=== PATIENT | male | born 1955 | race Caucasian/White ===

== ENCOUNTER 2017-02-06 13:45 | Emergency (ER) | payer MEDICARE, OTHER ==
[~2017-02-06] VITALS: Ht 190.5 cm; Wt 172.4 kg
[~2017-02-06 13:45] MED LIST: ALBU90OI INH; AMIT50 PO; AMLO5 PO; ASPI325 PO; ATOR80 PO; CIPR500 PO; CYCL10 PO; DOXY100T53 PO; Desyrel50 MG PO; FINA5 PO; FISH1000 PO; FLUO10 PO; FLUT44OIA INH; FURO40 PO; GABA300 PO; HYDCHL25 PO; HYDR1TAB94 PO; LIDO5TP TOP; LISI20 PO; LOSA50 PO; MELO7.5 PO; METO25 PO; METO25ER PO; METO50 PO; METO50ER PO; METPRE4DP PO; MYRBETRIQ50 MG PO; Micro-K10 MEQ PO; NITR.4SL SL; NITR.6SL SL; Norco 10-325 T1 EACH PO; OXYACE5T PO; PAIN MEDICATION; PARO30 PO; PENVK250; POTA10T PO; POTA8 PO; Percocet 5-3251 EACH PO; Prozac40 MG PO; Roxicodone5 MG PO; SOLI5 PO; Senna8.6 M1 PO; Senna8.6 MG PO; TADA10TA PO; TAMS.4ER PO; TOPI25 PO; Valium5 MG PO; [UNRECOGNIZED DRUG - REMARK] PO
[2017-02-06] MEDS ORDERED: PERIDEX15 ML MM (14:35)
[2017-02-06] MEDS ORDERED: Amoxicillin500 MG PO (14:35)
[2017-05-21] MEDS ORDERED: SLEEPING MED (23:04)
[2017-05-21] MEDS ORDERED: HIGH BLOOD PRESSURE (23:04)
[2017-05-22] MEDS ORDERED: AMIT50 PO (15:33)
[2017-05-22] MEDS ORDERED: AMLO10 PO (15:34)
[2017-05-23] MEDS ORDERED: GABA300 PO (11:11)
[2017-05-23] MEDS ORDERED: IBUP400 PO (11:13)
[2017-05-23] MEDS ORDERED: LISI5 PO (11:14)
[2017-05-23] MEDS ORDERED: METO50 PO (11:15)
[2017-05-23] MEDS ORDERED: FURO40 PO (11:16)
[2017-10-25] MEDS ORDERED: Lipitor80 MG PO (15:00)
[2017-10-25] MEDS ORDERED: LOSA50 PO (15:00)
[2017-10-25] MEDS ORDERED: GABA300 PO (15:01)
[2017-10-25] MEDS ORDERED: AMLO10 PO (15:01)
[2017-10-25] MEDS ORDERED: Lasix20 MG PO (16:06)
== END 2017-02-06 14:42 | disposition home or self-care (01) ==
LOC: ER 13:45
DX: K08.89 Other specified disorders of teeth and supporting structures (principal); Z88.8 Allergy status to other drugs, medicaments and biological substances; Z91.030 Bee allergy status; I10 Essential (primary) hypertension; F32.9 Major depressive disorder, single episode, unspecified
CPT/HCPCS: 99282

== ENCOUNTER 2017-04-23 07:45 | Emergency (ER) | payer MEDICARE, OTHER ==
[~2017-04-23] VITALS: Ht 190.5 cm; Wt 181.4 kg
[~2017-04-23 07:45] MED LIST changes: +Amoxicillin500 MG PO; +PERIDEX15 ML MM
[2017-04-23] MEDS ORDERED: TIOT18 INH (08:28)
[2017-04-23] MEDS ORDERED: DOXA1 PO (08:28)
[2017-04-23] MEDS ORDERED: MYRBETRIQ50 MG PO (08:28)
[2017-04-23] MEDS ORDERED: ALBU90OI6 INH (08:29)
[2017-04-23 08:50] LABS: BASOPHILS ABSOLUTE AUTO 0.06 K/mm3 (0.00-0.23); BASOPHILS PERCENT AUTO 1 % (0-2); EOSINOPHILS ABSOLUTE AUTO 0.28 K/mm3 (0.00-0.68); EOSINOPHILS PERCENT AUTO 4 % (0-6); Hematocrit 46.9 % (37.0-53.0); Hemoglobin 15.2 g/dL (13.5-17.5); IMMATURE GRAN ABSOLUTE AUTO 0.04 K/mm3 (0.00-0.10); IMMATURE GRAN PERCENT AUTO 1 % (0-1); LYMPHOCYTES ABSOLUTE AUTO 1.04 K/mm3 (0.84-5.20); LYMPHOCYTES PERCENT AUTO 15 % (21-46); MONOCYTES ABSOLUTE AUTO 0.83 K/mm3 (0.16-1.47); MONOCYTES PERCENT AUTO 12 % (4-13); Mean Corpuscular HGB 28.8 pg (26.0-34.0); Mean Corpuscular HGB Conc 32.4 g/dL (31.5-36.5); Mean Corpuscular Volume 89 fL (80-100); Mean Platelet Volume 12.7 fL (9.1-12.4); NEUTROPHILS ABSOLUTE AUTO 4.89 K/mm3 (1.96-9.15); NEUTROPHILS PERCENT AUTO 69 % (41-73); Platelet Count 211 K/mm3 (150-400); RDW Coefficient Variation 14.1 % (11.7-14.2); RDW Standard Deviation 46.1 fL (35.1-46.3); Red Blood Cell Count 5.28 M/mm3 (4.30-5.90); White Blood Cell Count 7.14 K/mm3 (4.00-11.30)
[2017-04-23 09:01] LABS: Alanine Aminotransfer (ALT/SGP 31 U/L (12-78); Albumin, Blood 3.2 g/dL (3.4-5.0); Albumin/Globulin Ratio 0.9 (0.8-1.8); Alk Phos 64 U/L (50-136); Anion Gap 8 mmol/L (6-16); Aspartate Aminotrans (AST/SGOT 19 U/L (12-37); Bilirubin, Total 0.6 mg/dL (0.1-1.0); Blood Urea Nitrogen 17 mg/dL (8-24); Bun/Creatinine Ratio 21.5 (12.0-20.0); CO2, Blood 25 mmol/L (21-32); Calcium, Blood 8.4 mg/dL (8.5-10.1); Chloride, Blood 105 mmol/L (98-108); Creatinine, Blood 0.79 mg/dL (0.60-1.20); Globulin, Blood 3.7 g/dL (2.2-4.0); Glomerular Filtration Rate >60 (60-); Glucose, Blood 107 mg/dL (70-99); Potassium, Blood 3.8 mmol/L (3.5-5.5); Sodium, Blood 138 mmol/L (136-145); Total Protein, Blood 6.9 g/dL (6.4-8.2); Troponin I 0.025 ng/mL (0.000-0.040)
[2017-05-21] MEDS ORDERED: SLEEPING MED (23:04)
[2017-05-21] MEDS ORDERED: HIGH BLOOD PRESSURE (23:04)
[2017-05-22] MEDS ORDERED: AMIT50 PO (15:33)
[2017-05-22] MEDS ORDERED: AMLO10 PO (15:34)
[2017-05-23] MEDS ORDERED: GABA300 PO (11:11)
[2017-05-23] MEDS ORDERED: IBUP400 PO (11:13)
[2017-05-23] MEDS ORDERED: LISI5 PO (11:14)
[2017-05-23] MEDS ORDERED: METO50 PO (11:15)
[2017-05-23] MEDS ORDERED: FURO40 PO (11:16)
[2017-10-25] MEDS ORDERED: Lipitor80 MG PO (15:00)
[2017-10-25] MEDS ORDERED: LOSA50 PO (15:00)
[2017-10-25] MEDS ORDERED: AMLO10 PO (15:01)
[2017-10-25] MEDS ORDERED: GABA300 PO (15:01)
[2017-10-25] MEDS ORDERED: Lasix20 MG PO (16:06)
== END 2017-04-23 10:47 | disposition home or self-care (01) ==
LOC: ER 07:45
PROVIDERS: Emergency Medicine
DX: R51 Headache (principal); I10 Essential (primary) hypertension; I48.2 Chronic atrial fibrillation; F32.9 Major depressive disorder, single episode, unspecified; Z91.038 Other insect allergy status; Z91.048 Other nonmedicinal substance allergy status; Z79.899 Other long term (current) drug therapy; Z87.442 Personal history of urinary calculi
CPT/HCPCS: 36415; 71046; 80053; 83880; 84484; 85025; 93005; 93010; 99284

== ENCOUNTER 2017-05-08 09:04 | Emergency (ER) | payer MEDICARE, OTHER ==
[~2017-05-08] VITALS: Ht 190.5 cm; Wt 181.4 kg
[~2017-05-08 09:04] MED LIST changes: +ALBU90OI6 INH; +DOXA1 PO; +TIOT18 INH
[2017-05-08 10:37] LABS: BASOPHILS ABSOLUTE AUTO 0.05 K/mm3 (0.00-0.23); BASOPHILS PERCENT AUTO 1 % (0-2); EOSINOPHILS ABSOLUTE AUTO 0.02 K/mm3 (0.00-0.68); EOSINOPHILS PERCENT AUTO 0 % (0-6); Hematocrit 48.4 % (37.0-53.0); Hemoglobin 15.8 g/dL (13.5-17.5); IMMATURE GRAN ABSOLUTE AUTO 0.02 K/mm3 (0.00-0.10); IMMATURE GRAN PERCENT AUTO 0 % (0-1); LYMPHOCYTES ABSOLUTE AUTO 0.59 K/mm3 (0.84-5.20); LYMPHOCYTES PERCENT AUTO 12 % (21-46); MONOCYTES ABSOLUTE AUTO 0.86 K/mm3 (0.16-1.47); MONOCYTES PERCENT AUTO 18 % (4-13); Mean Corpuscular HGB 29.4 pg (26.0-34.0); Mean Corpuscular HGB Conc 32.6 g/dL (31.5-36.5); Mean Corpuscular Volume 90 fL (80-100); Mean Platelet Volume 12.3 fL (9.1-12.4); NEUTROPHILS PERCENT AUTO 68 % (41-73); Platelet Count 180 K/mm3 (150-400); RDW Coefficient Variation 14.1 % (11.7-14.2); RDW Standard Deviation 46.5 fL (35.1-46.3); Red Blood Cell Count 5.37 M/mm3 (4.30-5.90); White Blood Cell Count 4.74 K/mm3 (4.00-11.30)
[2017-05-08 10:56] LABS: Alanine Aminotransfer (ALT/SGP 35 U/L (12-78); Albumin, Blood 3.3 g/dL (3.4-5.0); Albumin/Globulin Ratio 0.8 (0.8-1.8); Alk Phos 62 U/L (50-136); Anion Gap 10 mmol/L (6-16); Aspartate Aminotrans (AST/SGOT 41 U/L (12-37); Bilirubin, Total 0.5 mg/dL (0.1-1.0); Blood Urea Nitrogen 12 mg/dL (8-24); Bun/Creatinine Ratio 13.1 (12.0-20.0); CO2, Blood 24 mmol/L (21-32); Calcium, Blood 8.3 mg/dL (8.5-10.1); Chloride, Blood 104 mmol/L (98-108); Creatinine, Blood 0.92 mg/dL (0.60-1.20); Globulin, Blood 3.9 g/dL (2.2-4.0); Glomerular Filtration Rate >60 (60-); Glucose, Blood 100 mg/dL (70-99); Potassium, Blood 3.6 mmol/L (3.5-5.5); Sodium, Blood 138 mmol/L (136-145); Total Protein, Blood 7.2 g/dL (6.4-8.2)
[2017-05-08 11:17] LABS: Influenza A Negative (NEGATIVE); Influenza B Negative (NEGATIVE)
[2017-05-08] MEDS ORDERED: Loperamide2 MG PO (11:53)
[2017-05-08] MEDS ORDERED: BENTYL10 MG PO (11:53)
[2017-05-08] MEDS ORDERED: Zofran Odt8 MG SL (11:53)
[2017-05-21] MEDS ORDERED: SLEEPING MED (23:04)
[2017-05-21] MEDS ORDERED: HIGH BLOOD PRESSURE (23:04)
[2017-05-22] MEDS ORDERED: AMIT50 PO (15:33)
[2017-05-22] MEDS ORDERED: AMLO10 PO (15:34)
== END 2017-05-08 12:34 | disposition home or self-care (01) ==
LOC: ER 09:04
PROVIDERS: Emergency Medicine
DX: K52.9 Noninfective gastroenteritis and colitis, unspecified (principal); I10 Essential (primary) hypertension; F32.9 Major depressive disorder, single episode, unspecified; Z91.038 Other insect allergy status; Z91.09 Other allergy status, other than to drugs and biological substances
CPT/HCPCS: 36415; 71046; 80053; 83690; 85025; 87804; 96361; 96374; 96375; 99284; J1885; J2405; J7030

== ENCOUNTER 2017-06-06 11:10 | Observation (INO) | payer MEDICARE ==
[~2017-06-06] VITALS: Ht 190.5 cm; Wt 176.0 kg
[~2017-06-06 11:10] MED LIST changes: +AMLO10 PO; +BENTYL10 MG PO; +HIGH BLOOD PRESSURE; +IBUP400 PO; +LISI5 PO; +Loperamide2 MG PO; +SLEEPING MED; +Zofran Odt8 MG SL
[2017-06-06 12:18] LABS: BASOPHILS ABSOLUTE AUTO 0.04 K/mm3 (0.00-0.23); BASOPHILS PERCENT AUTO 1 % (0-2); EOSINOPHILS PERCENT AUTO 2 % (0-6); Hemoglobin 17.8 g/dL (13.5-17.5); IMMATURE GRAN ABSOLUTE AUTO 0.01 K/mm3 (0.00-0.10); IMMATURE GRAN PERCENT AUTO 0 % (0-1); LYMPHOCYTES ABSOLUTE AUTO 0.78 K/mm3 (0.84-5.20); LYMPHOCYTES PERCENT AUTO 11 % (21-46); MONOCYTES ABSOLUTE AUTO 0.57 K/mm3 (0.16-1.47); MONOCYTES PERCENT AUTO 8 % (4-13); Mean Corpuscular HGB 29.2 pg (26.0-34.0); Mean Corpuscular Volume 89 fL (80-100); Mean Platelet Volume 12.1 fL (9.1-12.4); NEUTROPHILS ABSOLUTE AUTO 5.35 K/mm3 (1.96-9.15); NEUTROPHILS PERCENT AUTO 78 % (41-73); Platelet Count 233 K/mm3 (150-400); RDW Coefficient Variation 13.7 % (11.7-14.2); RDW Standard Deviation 44.1 fL (35.1-46.3); Red Blood Cell Count 6.09 M/mm3 (4.30-5.90); White Blood Cell Count 6.85 K/mm3 (4.00-11.30)
[2017-06-06 12:50] LABS: Alanine Aminotransfer (ALT/SGP 36 U/L (12-78); Albumin, Blood 3.4 g/dL (3.4-5.0); Albumin/Globulin Ratio 0.8 (0.8-1.8); Alk Phos 75 U/L (50-136); Anion Gap 9 mmol/L (6-16); Aspartate Aminotrans (AST/SGOT 27 U/L (12-37); Bilirubin, Total 0.6 mg/dL (0.1-1.0); Blood Urea Nitrogen 15 mg/dL (8-24); Bun/Creatinine Ratio 16.5 (12.0-20.0); CO2, Blood 23 mmol/L (21-32); Calcium, Blood 9.1 mg/dL (8.5-10.1); Chloride, Blood 104 mmol/L (98-108); Creatinine, Blood 0.91 mg/dL (0.60-1.20); Ethanol (Alcohol), Blood, Med <3 mg/dL; Globulin, Blood 4.5 g/dL (2.2-4.0); Glomerular Filtration Rate >60 (60-); Glucose, Blood 81 mg/dL (70-99); Salicylate <1.7 mg/dL (2.8-20.0); Sodium, Blood 136 mmol/L (136-145); Total Protein, Blood 7.9 g/dL (6.4-8.2)
[2017-06-06 12:59] LABS: Acetaminophen, Random <2.0 ug/mL (10.0-30.0)
== END 2017-06-06 14:34 | disposition home or self-care (01) ==
LOC: ER 11:10 → EOR 11:11
PROVIDERS: Emergency Medicine
DX: R45.851 Suicidal ideations (principal); F32.9 Major depressive disorder, single episode, unspecified; I10 Essential (primary) hypertension; M54.9 Dorsalgia, unspecified; G89.29 Other chronic pain; G47.30 Sleep apnea, unspecified; Z79.899 Other long term (current) drug therapy
CPT/HCPCS: 80053; 84443; 85025; 99285; G0378; G0480

== ENCOUNTER → 2017-09-19 | Outpatient (CLI) | payer MEDICARE, OTHER | END | disposition home or self-care (01) | LOC: LAB 13:05 → LAB SHORT 13:05 | DX: L08.0 Pyoderma (principal) | CPT/HCPCS: 87070; 87205 ==

== ENCOUNTER 2018-03-24 13:08 | Inpatient (IN) | payer MEDICARE, OTHER ==
[~2018-03-24] VITALS: Ht 188 cm; Wt 177.6 kg
[~2018-03-24 13:08] MED LIST changes: +Lasix20 MG PO; +Lipitor80 MG PO
[2018-03-24 13:36] LABS: BASOPHILS ABSOLUTE AUTO 0.05 K/mm3 (0.00-0.23); BASOPHILS PERCENT AUTO 1 % (0-2); EOSINOPHILS ABSOLUTE AUTO 0.32 K/mm3 (0.00-0.68); EOSINOPHILS PERCENT AUTO 4 % (0-6); Hematocrit 42.3 % (37.0-53.0); Hemoglobin 13.7 g/dL (13.5-17.5); IMMATURE GRAN ABSOLUTE AUTO 0.04 K/mm3 (0.00-0.10); IMMATURE GRAN PERCENT AUTO 1 % (0-1); LYMPHOCYTES ABSOLUTE AUTO 1.44 K/mm3 (0.84-5.20); LYMPHOCYTES PERCENT AUTO 17 % (21-46); MONOCYTES PERCENT AUTO 11 % (4-13); Mean Corpuscular HGB 30.6 pg (26.0-34.0); Mean Corpuscular HGB Conc 32.4 g/dL (31.5-36.5); Mean Corpuscular Volume 94 fL (80-100); Mean Platelet Volume 12.1 fL (9.1-12.4); NEUTROPHILS PERCENT AUTO 67 % (41-73); Platelet Count 214 K/mm3 (150-400); RDW Coefficient Variation 13.2 % (11.7-14.2); Red Blood Cell Count 4.48 M/mm3 (4.30-5.90); White Blood Cell Count 8.35 K/mm3 (4.00-11.30)
[2018-03-24 14:06] LABS: Alanine Aminotransfer (ALT/SGP 31 U/L (12-78); Albumin, Blood 3.2 g/dL (3.4-5.0); Alk Phos 62 U/L (50-136); Anion Gap 6 mmol/L (6-16); Aspartate Aminotrans (AST/SGOT 12 U/L (12-37); Bilirubin, Total 0.5 mg/dL (0.1-1.0); Blood Urea Nitrogen 29 mg/dL (8-24); Bun/Creatinine Ratio 27.9 (12.0-20.0); CO2, Blood 28 mmol/L (21-32); Calcium, Blood 8.7 mg/dL (8.5-10.1); Chloride, Blood 108 mmol/L (98-108); Creatinine, Blood 1.04 mg/dL (0.60-1.20); Globulin, Blood 3.2 g/dL (2.2-4.0); Glomerular Filtration Rate >60 (60-); Glucose, Blood 102 mg/dL (70-99); Potassium, Blood 4.1 mmol/L (3.5-5.5); Sodium, Blood 142 mmol/L (136-145); Total Protein, Blood 6.4 g/dL (6.4-8.2); Troponin I <0.015 ng/mL (0.000-0.040)
[2018-03-24 17:59] LABS: Creatine Kinase MB 2.9 ng/mL (0.0-3.6); Creatine Kinase MB Index 2.6 (0.0-4.0); Troponin I 0.018 ng/mL (0.000-0.040)
[2018-03-24 22:13] LABS: Creatine Kinase MB Index 3.6 (0.0-4.0); Troponin I 0.017 ng/mL (0.000-0.040)
--- NOTE | 2018-03-24 22:51 | NUR ---
PT ARRIVED ON THE FLOOR AT 1945. HE WAS NPO ON ADMISSION PER DR SWEENEY, BUT IN THE ORDER IT STATED THAT THE PT COULD BE MADE ADA/CARDIAC DIET IF HIS SECOND TROPONIN WAS NEGATIVE. THE PT'S SECOND TROPONIN WAS SLIGHTLY ELEVATED AT 0.018, HE CONTINUED TO BE NPO. HOWEVER, THE PT REPORTED THAT HE HADN'T EATEN SINCE THE AM. THE HOSPITALIST, EDISON BROWN, WAS CONSULTED, AND HE AGREED TO LET THE PT EAT AND THEN MAKE HIM NPO FOR THE REST OF THE NIGHT IN PREP FOR ANY POSSIBLE CARDIAC TESTING TOMORROW.
[2018-03-25 05:35] LABS: BASOPHILS ABSOLUTE AUTO 0.05 K/mm3 (0.00-0.23); BASOPHILS PERCENT AUTO 1 % (0-2); EOSINOPHILS ABSOLUTE AUTO 0.32 K/mm3 (0.00-0.68); EOSINOPHILS PERCENT AUTO 4 % (0-6); Hematocrit 40.7 % (37.0-53.0); IMMATURE GRAN ABSOLUTE AUTO 0.02 K/mm3 (0.00-0.10); IMMATURE GRAN PERCENT AUTO 0 % (0-1); LYMPHOCYTES ABSOLUTE AUTO 1.29 K/mm3 (0.84-5.20); LYMPHOCYTES PERCENT AUTO 17 % (21-46); MONOCYTES ABSOLUTE AUTO 0.78 K/mm3 (0.16-1.47); MONOCYTES PERCENT AUTO 10 % (4-13); Mean Corpuscular HGB 30.3 pg (26.0-34.0); Mean Corpuscular HGB Conc 31.9 g/dL (31.5-36.5); Mean Corpuscular Volume 95 fL (80-100); Mean Platelet Volume 12.4 fL (9.1-12.4); NEUTROPHILS ABSOLUTE AUTO 5.26 K/mm3 (1.96-9.15); NEUTROPHILS PERCENT AUTO 68 % (41-73); Platelet Count 185 K/mm3 (150-400); RDW Coefficient Variation 13.2 % (11.7-14.2); Red Blood Cell Count 4.29 M/mm3 (4.30-5.90); White Blood Cell Count 7.72 K/mm3 (4.00-11.30)
[2018-03-25 06:08] LABS: Anion Gap 9 mmol/L (6-16); Blood Urea Nitrogen 23 mg/dL (8-24); Bun/Creatinine Ratio 25.8 (12.0-20.0); CO2, Blood 27 mmol/L (21-32); Calcium, Blood 8.6 mg/dL (8.5-10.1); Chloride, Blood 107 mmol/L (98-108); Cholesterol 95 mg/dL (50-200); Creatinine, Blood 0.89 mg/dL (0.60-1.20); Glomerular Filtration Rate >60 (60-); Glucose, Blood 87 mg/dL (70-99); Potassium, Blood 3.7 mmol/L (3.5-5.5); Sodium, Blood 143 mmol/L (136-145); Triglycerides 129 mg/dL (30-160); Very Low Density Lipoprot Chol 25 mg/dL (6-32)
[2018-03-25 06:20] LABS: CHOL/HDL RATIO 2.6; Free Thyroxine 1.13 ng/dL (0.70-1.60); HDL Cholesterol 37 mg/dL (>39); LDL/HDL RATIO 0.9; Low Density Lipoprotein Chol 32 mg/dL (0-110)
--- NOTE | 2018-03-25 06:34 | NUR ---
SHIFT SUMMARY PT WAS A NEW ADMIT DURING THE NIGHT, ADMITTED FOR CHEST PAIN/PRESSURE. HE IS A&O X 3, THOUGH OCCASIONALLY SLOW TO UNDERSTAND AND IS A POOR HISTORIAN. THE PT DID REPORT SOME MILD CHEST PAIN DURING THE NIGHT, BUT DENIED THE NEED FOR PAIN MEDS. THE PT'S SECOND TROPONIN WAS SLIGHTLY ELEVATED, SO PT WAS CONTINUED NPO (SEE PREVIOUS NOTE). HIS BP WAS ALSO SLIGHTLY ELEVATED DURING THE NIGHT, IN THE 160S SYSTOLICALLY. PER THE TELE MONITOR, HE WAS IN AFIB AND RUNNING BRADYCARDIC BETWEEN THE 40-50S. ALL OTHER VITALS STABLE. PT WAS ON CONTINUOUS FLUIDS DURING THE NIGHT, NS AT 125/HR. NO OTHER ACUTE CHANGES IN PT CONDITION NOTED. WILL CONTINUE TO MONITOR AND TREAT.
--- NOTE | 2018-03-25 13:33 | NUR ---
ECHOCARDIOGRAM COMPLETE
--- NOTE | 2018-03-25 17:25 | NUR ---
NO COMPLAINTS OF CHEST PAIN TODAY. RATE AND RHYTHM WERE AFIB AT 51 BPM PER PCU POSTAL SORTING OFFICER. PT USES URINAL AT BEDSIDE. HE RECIEVED A SHOWER TODAY. A STOOL SAMPLE IS NEEDED, HAT IN PLACE. PT ON A ADA DIET. NO ACUTE CHANGES THIS SHIFT. WILL CONTINUE TO MONITOR.
[2018-03-25 23:12] LABS: Adenovirus F 40/41 Not Detected (NOT DETECT); Astrovirus Not Detected (NOT DETECT); Campylobacter Sp Not Detected (NOT DETECT); Cryptosporidium Not Detected (NOT DETECT); Cyclospora Cayetanensis Not Detected (NOT DETECT); E. Coli O157 Not Detected (NOT DETECT); Entamoeba Histolytica Not Detected (NOT DETECT); Enteroaggregative E. coli-EAEC Not Detected (NOT DETECT); Enteropathogenic E. coli-EPEC Not Detected (NOT DETECT); Enterotoxigenic E. coli-ETEC Not Detected (NOT DETECT); Giardia Lamblia Not Detected (NOT DETECT); Norovirus GI/GII Not Detected (NOT DETECT); Plesiomonas Shigelloides Not Detected (NOT DETECT); Rotavirus A Not Detected (NOT DETECT); Salmonella Sp Not Detected (NOT DETECT); Sapovirus Not Detected (NOT DETECT); Shiga Toxin-prod E. coli-STEC Not Detected (NOT DETECT); Shigella/Enteroin E. coli-EIEC Not Detected (NOT DETECT); Vibrio Cholerae Not Detected (NOT DETECT); Vibrio Sp Not Detected (NOT DETECT); Yersinia Enterocolitica Not Detected (NOT DETECT)
--- NOTE | 2018-03-26 06:28 | NUR ---
SHIFT SUMMARY PT IS A 62 Y/O MALE, ADMITTED FOR CHEST PAIN. THE PT REPORTED MINIMAL CHEST PAIN DURING THE NIGHT, BETWEEN A 2-04/16 WITH NO CP REPORTED IN THE AM. HE ALSO DENIED ANY NAUSEA OR SOB. VITAL SIGNS REMAINED STABLE. NO OTHER ACUTE CHANGES IN PT CONDITION NOTED. WILL CONTINUE TO MONITOR AND TREAT PER EMAR.
--- NOTE | 2018-03-26 12:52 | NUR ---
NORVASC AND METOPROLOL HELD THIS MORNING FOR HR OF AFIB AT 56 BPM PER COMMUTATOR TESTER. DROPPED LOW 39 BPM OVERNIGHT.
--- NOTE | 2018-03-26 14:23 | NUR ---
PT COMPLAINED OF CHEST PAIN. VITAL SIGNS INCLUDE HR OF 63 BPM AND BP OF 152/97. AFTER FIRST DOSE OF NITRO, VITAL SIGNS INCLUDED HR OF 57 AND BP OF 134/100. ALL THREE DOSES OF NITRO GIVEN. INTITIALLY PT STATED CHEST PRESSURE LESSENED, AND THEN COMPLAINED OF WORSENING CHEST PRESSURE. NO NAUSEA, NOT RADIATING, NO SOB. DR. NAM VISITED THE PT DURING HIS EPISODE OF CHEST PRESSURE. WILL CONTINUE TO MONITOR.
--- NOTE | 2018-03-26 17:09 | NUR ---
PT IS ALERT AND ORIENTED AND COOPERATIVE WITH CARE. CARDIAC MEDICATIONS HELD THIS MORNING FOR LOW HR OF 55. PT COMPLAINED OF CHEST PRESSURE THIS AFTERNOON. NITROGLYCERIN ADMINISTERED AND VITALS RECORDED. DR. NAM NOTIFIED OF PT'S COMPLAINTS. PT'S CHEST PRESSURE SUBSIDED AFTER THREE DOSES OF NITROGLYCERIN. HE HAS A 20 GAUGE IN HIS RIGHT FOREARM. PT USES URINAL IN BED. RATE AND RHYTHM OF ATRIAL FLUTTER AT 56 BPM PER AUDITING CODER. STRESS TEST SCHEDULED TOMORROW 03/27/18. PT TO BE NPO AT 04:00 ON 03/27/18.
--- NOTE | 2018-03-27 06:22 | NUR ---
SHIFT SUMMARY PT IS A 62 Y/O MALE, ADMITTED FOR CHEST PAIN. HE DENIED ANY CHEST PAIN, NAUSEA OR SOB, AND SLEPT WELL THROUGH THE NIGHT. PT'S BP WAS ELEVATED DURING AM VITALS AT 161/108, ALL OTHER VITALS NORMAL. NO OTHER ACUTE CHANGES IN PT CONDITION NOTED. WILL CONTINUE TO MONITOR AND TREAT.
--- NOTE | 2018-03-27 18:35 | NUR ---
SHIFT SUMMARY GENE HAD FIRST PORTION OF STRESS TEST TODAY. SECOND PORTION IS TOMORROW AT NOON, NPO STARTING 8AM, NO CAFFEINE AFTER MIDNIGHT. CBGS ACHS CHANGED TO Q AM SINCE THEY HAVE BEEN WNL. STILL COMPLAINING OF DIZZINESS, ASKING HIM TO CALL BEFORE GETTING OOB. BPS VERY LABILE. REQUIRED IV HYDRALAZINE ONCE. TELE SHOWED AFIB IN THE 60S THIS SHIFT. COMPLAINED OF BACK PAIN AND RECEIVED OXY TWICE WITH GOOD EFFECT. TOOK PILLS PRESCRIBED. WCTM
--- NOTE | 2018-03-28 04:15 | NUR ---
03/28/18 0415 AWAKENED FOR AM LABS AND BATTERY CHANGE ON HEART MONITOR. DENIES ANY S/S OR COMPLAINTS. VITALS AND HEART MONITOR STABLE. SLEEPING WELL THIS SHIFT.
[2018-03-28 05:18] LABS: Anion Gap 10 mmol/L (6-16); Blood Urea Nitrogen 17 mg/dL (8-24); Bun/Creatinine Ratio 18.3 (12.0-20.0); CO2, Blood 24 mmol/L (21-32); Chloride, Blood 106 mmol/L (98-108); Creatinine, Blood 0.93 mg/dL (0.60-1.20); Glomerular Filtration Rate >60 (60-); Glucose, Blood 90 mg/dL (70-99); Potassium, Blood 4.1 mmol/L (3.5-5.5); Sodium, Blood 140 mmol/L (136-145)
--- NOTE | 2018-03-28 19:15 | NUR ---
PT. SITTING ON EDGE OF BED. NO NOEABLE CHANGES THIS SHIFT. PT. COMPLETED STRESS TEST TODAY.
--- NOTE | 2018-03-29 07:16 | NUR ---
a+o, call light in reach tele recording, rm air, saline locked, able to access the bathroom, asked for apple juice and after a reminder of the carbohydrates involved he was given it, walking rouonds completed with day staff
[2018-03-29] MEDS ORDERED: FURO40 PO (09:44)
[2018-03-29] MEDS ORDERED: CLARITIN10 MG PO (09:45)
[2018-03-29] MEDS ORDERED: Coreg12.5 MG PO (09:45)
[2018-03-29] MEDS ORDERED: MOTION RELIEF25 MG PO (09:47)
[2018-03-29] MEDS ORDERED: Nitrostat0.4 MG SL (09:48)
--- NOTE | 2018-03-29 13:53 | NUR ---
PT DISCHARGED HOME, PLANS ON DRIVING HIMSELF. LET PT. KNOW I WOULD NOT BE GIVING HIM ANY PAIN MEDS THEN. PT. OKAY WITH IT.
== END 2018-03-29 13:53 | disposition home or self-care (01) | DRG 313 ==
LOC: ER 13:08 → MEDS 13:09
PROVIDERS: Internal Medicine; Physician Assistant; ADMIT Family Medicine
DX: R07.9 Chest pain, unspecified (principal); Z68.43 Body mass index [BMI] 50.0-59.9, adult; R42 Dizziness and giddiness; R19.7 Diarrhea, unspecified; E66.01 Morbid (severe) obesity due to excess calories; R00.1 Bradycardia, unspecified; N40.0 Benign prostatic hyperplasia without lower urinary tract symptoms; F32.9 Major depressive disorder, single episode, unspecified; R51 Headache; I10 Essential (primary) hypertension; E11.9 Type 2 diabetes mellitus without complications; E78.5 Hyperlipidemia, unspecified; I48.2 Chronic atrial fibrillation; G47.33 Obstructive sleep apnea (adult) (pediatric); Z79.01 Long term (current) use of anticoagulants; Z79.891 Long term (current) use of opiate analgesic; Z79.899 Other long term (current) drug therapy
CPT/HCPCS: 36415; 36416; 71046; 78452; 80048; 80053; 80061; 82465; 82550; 82553; 82947; 83880; 84439; 84443; 84478; 84484; 85025; 85379; 87507; 93005; 93010; 93017; 93306; 94762; 96361; 96374; 99285-25; A9500; G0378; J0360; J0706; J2785; J7030

== ENCOUNTER 2018-06-08 15:35 | Emergency (ER) | payer MEDICARE, OTHER ==
[~2018-06-08] VITALS: Ht 190.5 cm; Wt 176.9 kg
[~2018-06-08 15:35] MED LIST changes: +CLARITIN10 MG PO; +Coreg12.5 MG PO; +MOTION RELIEF25 MG PO; +Nitrostat0.4 MG SL
[2018-06-08] MEDS ORDERED: METPRE4DP PO (18:29)
== END 2018-06-08 18:59 | disposition home or self-care (01) ==
LOC: ER 15:35
DX: M54.16 Radiculopathy, lumbar region (principal); G89.29 Other chronic pain; I48.91 Unspecified atrial fibrillation; E11.9 Type 2 diabetes mellitus without complications; E78.5 Hyperlipidemia, unspecified; I10 Essential (primary) hypertension; Z87.891 Personal history of nicotine dependence
CPT/HCPCS: 99283; J1100

== ENCOUNTER 2018-06-14 06:03 | Observation (INO) | payer MEDICARE, OTHER ==
[~2018-06-14] VITALS: Ht 190.5 cm; Wt 173.7 kg
[~2018-06-14 06:03] MED LIST changes: +GABA600 PO; +LOSARTAN POTAS100 MG PO
[2018-06-14 06:27] LABS: BASOPHILS ABSOLUTE AUTO 0.03 K/mm3 (0.00-0.23); BASOPHILS PERCENT AUTO 0 % (0-2); EOSINOPHILS ABSOLUTE AUTO 0.06 K/mm3 (0.00-0.68); EOSINOPHILS PERCENT AUTO 1 % (0-6); Hematocrit 50.4 % (37.0-53.0); Hemoglobin 16.6 g/dL (13.5-17.5); IMMATURE GRAN ABSOLUTE AUTO 0.03 K/mm3 (0.00-0.10); IMMATURE GRAN PERCENT AUTO 0 % (0-1); LYMPHOCYTES ABSOLUTE AUTO 0.93 K/mm3 (0.84-5.20); LYMPHOCYTES PERCENT AUTO 9 % (21-46); MONOCYTES ABSOLUTE AUTO 1.09 K/mm3 (0.16-1.47); MONOCYTES PERCENT AUTO 11 % (4-13); Mean Corpuscular HGB 30.2 pg (26.0-34.0); Mean Corpuscular HGB Conc 32.9 g/dL (31.5-36.5); Mean Corpuscular Volume 92 fL (80-100); Mean Platelet Volume 12.1 fL (9.1-12.4); NEUTROPHILS ABSOLUTE AUTO 8.07 K/mm3 (1.96-9.15); NEUTROPHILS PERCENT AUTO 79 % (41-73); Platelet Count 208 K/mm3 (150-400); RDW Coefficient Variation 13.2 % (11.7-14.2); RDW Standard Deviation 44.9 fL (35.1-46.3); Red Blood Cell Count 5.49 M/mm3 (4.30-5.90); White Blood Cell Count 10.21 K/mm3 (4.00-11.30)
[2018-06-14 06:50] LABS: Albumin, Blood 3.5 g/dL (3.4-5.0); Albumin/Globulin Ratio 0.9 (0.8-1.8); Bilirubin, Total 1.5 mg/dL (0.1-1.0); Bun/Creatinine Ratio 13.1 (12.0-20.0); Calcium, Blood 8.6 mg/dL (8.5-10.1); Creatinine, Blood 1.45 mg/dL (0.60-1.20); Globulin, Blood 3.8 g/dL (2.2-4.0); Potassium, Blood 3.3 mmol/L (3.5-5.5); Total Protein, Blood 7.3 g/dL (6.4-8.2); Troponin I 0.019 ng/mL (0.000-0.040)
[2018-06-14 08:24] LABS: U Amphetamine Screen Not Detected; U Barbituate Screen Not Detected; U Benzodiazapine Screen Not Detected; U Buprenorphine Screen Not Detected; U Cannabinoids Screen Not Detected; U Cocaine Screen Not Detected; U Methadone Screen Not Detected; U Methamphetamine Screen Not Detected; U Opiates Screen Not Detected; U Oxycodone Screen DETECTED; U Phencyclidine Screen Not Detected; U Propoxyphene Screen Not Detected
[2018-06-14] MEDS ORDERED: Oxybutynin Chlo10 MG PO (12:53)
== END 2018-06-15 16:44 | disposition home or self-care (01) ==
LOC: ER 06:03 → EOR 06:04
PROVIDERS: ADMIT Emergency Medicine
DX: F32.9 Major depressive disorder, single episode, unspecified (principal); F43.21 Adjustment disorder with depressed mood; R10.9 Unspecified abdominal pain; E66.9 Obesity, unspecified; E11.9 Type 2 diabetes mellitus without complications; E78.5 Hyperlipidemia, unspecified; G47.30 Sleep apnea, unspecified; I10 Essential (primary) hypertension; Z79.899 Other long term (current) drug therapy; Z87.891 Personal history of nicotine dependence
CPT/HCPCS: 36415; 74177; 80053; 83690; 84484; 85025; 93005; 93010; 96361; 96374-59; 96375; 99285-25; G0378; G0480; J2405; J3010; J7030; Q3014; Q9967

== ENCOUNTER 2018-07-17 18:11 | Emergency (ER) | payer MEDICARE, OTHER ==
[~2018-07-17] VITALS: Ht 190.5 cm; Wt 149.7 kg
[~2018-07-17 18:11] MED LIST changes: +METCAR500 PO; +Oxybutynin Chlo10 MG PO
[2018-07-17 18:38] LABS: BASOPHILS ABSOLUTE AUTO 0.05 K/mm3 (0.00-0.23); BASOPHILS PERCENT AUTO 1 % (0-2); EOSINOPHILS ABSOLUTE AUTO 0.11 K/mm3 (0.00-0.68); EOSINOPHILS PERCENT AUTO 2 % (0-6); Hematocrit 46.7 % (37.0-53.0); Hemoglobin 15.4 g/dL (13.5-17.5); IMMATURE GRAN ABSOLUTE AUTO 0.03 K/mm3 (0.00-0.10); IMMATURE GRAN PERCENT AUTO 0 % (0-1); LYMPHOCYTES ABSOLUTE AUTO 1.53 K/mm3 (0.84-5.20); LYMPHOCYTES PERCENT AUTO 20 % (21-46); MONOCYTES ABSOLUTE AUTO 0.84 K/mm3 (0.16-1.47); MONOCYTES PERCENT AUTO 11 % (4-13); Mean Corpuscular HGB 30.1 pg (26.0-34.0); Mean Corpuscular Volume 91 fL (80-100); Mean Platelet Volume 12.1 fL (9.1-12.4); NEUTROPHILS ABSOLUTE AUTO 4.99 K/mm3 (1.96-9.15); NEUTROPHILS PERCENT AUTO 66 % (41-73); Platelet Count 221 K/mm3 (150-400); RDW Coefficient Variation 13.2 % (11.7-14.2); Red Blood Cell Count 5.11 M/mm3 (4.30-5.90); White Blood Cell Count 7.55 K/mm3 (4.00-11.30)
[2018-07-17] MEDS ORDERED: Percocet 5-3251 EACH PO (18:54)
[2018-07-17] MEDS ORDERED: NARCAN4 MG (18:54)
[2018-07-17] MEDS ORDERED: MYRBETRIQ50 MG PO (18:54)
[2018-07-17] MEDS ORDERED: Oxybutynin Chlo15 MG PO (18:55)
[2018-07-17] MEDS ORDERED: ATOR80 PO (18:55)
[2018-07-17 19:37] LABS: Alanine Aminotransfer (ALT/SGP 28 U/L (12-78); Albumin, Blood 3.5 g/dL (3.4-5.0); Alk Phos 62 U/L (50-136); Anion Gap 9 mmol/L (6-16); Aspartate Aminotrans (AST/SGOT 14 U/L (12-37); Bilirubin, Total 0.4 mg/dL (0.1-1.0); Blood Urea Nitrogen 26 mg/dL (8-24); Bun/Creatinine Ratio 19.7 (12.0-20.0); CO2, Blood 23 mmol/L (21-32); Calcium, Blood 8.9 mg/dL (8.5-10.1); Chloride, Blood 105 mmol/L (98-108); Creatinine, Blood 1.32 mg/dL (0.60-1.20); Globulin, Blood 3.6 g/dL (2.2-4.0); Glomerular Filtration Rate 58 (60-); Glucose, Blood 100 mg/dL (70-99); Potassium, Blood 3.7 mmol/L (3.5-5.5); Sodium, Blood 137 mmol/L (136-145); Total Protein, Blood 7.1 g/dL (6.4-8.2); Troponin I <0.015 ng/mL (0.000-0.040)
[2018-10-22] MEDS ORDERED: FURO40 PO (10:04)
[2018-10-22] MEDS ORDERED: POTA10T PO (10:04)
[2018-10-22] MEDS ORDERED: AMLO5 PO (10:04)
[2018-10-22] MEDS ORDERED: Toviaz4 MG PO (10:05)
[2018-10-22] MEDS ORDERED: FLUO10 PO (13:12)
== END 2018-07-17 23:00 | disposition home or self-care (01) ==
LOC: ER 18:11
PROVIDERS: Emergency Medicine
DX: R07.89 Other chest pain (principal); Z91.030 Bee allergy status; Z88.8 Allergy status to other drugs, medicaments and biological substances; Z79.899 Other long term (current) drug therapy; I10 Essential (primary) hypertension; F32.9 Major depressive disorder, single episode, unspecified; I48.91 Unspecified atrial fibrillation
CPT/HCPCS: 36415; 71046; 71260; 80053; 83880; 84484; 85025; 85379; 93005; 93010; 96374-59; 99285-25; J1885; Q9967

== ENCOUNTER 2018-08-02 11:23 | Emergency (ER) | payer MEDICARE, OTHER ==
[~2018-08-02] VITALS: Ht 190.5 cm; Wt 167.4 kg
[~2018-08-02 11:23] MED LIST changes: +NARCAN4 MG; +Oxybutynin Chlo15 MG PO
[2018-08-02] MEDS ORDERED: ALBU90OI INH (13:30)
[2018-08-02] MEDS ORDERED: BENZ100A PO (13:30)
[2018-10-22] MEDS ORDERED: FURO40 PO (10:04)
[2018-10-22] MEDS ORDERED: POTA10T PO (10:04)
[2018-10-22] MEDS ORDERED: AMLO5 PO (10:04)
[2018-10-22] MEDS ORDERED: Toviaz4 MG PO (10:05)
[2018-10-22] MEDS ORDERED: FLUO10 PO (13:12)
== END 2018-08-02 13:41 | disposition home or self-care (01) ==
LOC: ER 11:23
DX: J20.9 Acute bronchitis, unspecified (principal); I48.91 Unspecified atrial fibrillation; E11.9 Type 2 diabetes mellitus without complications; E78.5 Hyperlipidemia, unspecified; I10 Essential (primary) hypertension; Z87.891 Personal history of nicotine dependence; Z79.899 Other long term (current) drug therapy
CPT/HCPCS: 71046; 93005; 93010; 94640; 99283-25

== ENCOUNTER 2018-08-04 10:44 | Emergency (ER) | payer MEDICARE, OTHER ==
[~2018-08-04] VITALS: Ht 190.5 cm; Wt 172.4 kg
[~2018-08-04 10:44] MED LIST changes: +BENZ100A PO
[2018-10-22] MEDS ORDERED: FURO40 PO (10:04)
[2018-10-22] MEDS ORDERED: AMLO5 PO (10:04)
[2018-10-22] MEDS ORDERED: POTA10T PO (10:04)
[2018-10-22] MEDS ORDERED: Toviaz4 MG PO (10:05)
[2018-10-22] MEDS ORDERED: FLUO10 PO (13:12)
== END 2018-08-04 12:17 | disposition home or self-care (01) ==
LOC: ER 10:44
DX: M54.31 Sciatica, right side (principal); G89.29 Other chronic pain; J40 Bronchitis, not specified as acute or chronic; Z91.030 Bee allergy status; Z79.899 Other long term (current) drug therapy; Z88.8 Allergy status to other drugs, medicaments and biological substances; I48.91 Unspecified atrial fibrillation; E11.9 Type 2 diabetes mellitus without complications; E78.5 Hyperlipidemia, unspecified; I10 Essential (primary) hypertension; F32.9 Major depressive disorder, single episode, unspecified; Z87.891 Personal history of nicotine dependence
CPT/HCPCS: 99283

== ENCOUNTER → 2018-08-17 | Outpatient (CLI) | payer MEDICARE, OTHER ==
[~2018-08-17] MED LIST changes: +Lasix40 MG PO; +Toviaz4 MG PO
== END | disposition home or self-care (01) ==
LOC: LAB UCHC 11:51 → LAB SHORT 11:51
DX: R05 Cough (principal)
CPT/HCPCS: 87081; 87798

== ENCOUNTER 2018-08-30 00:09 | Emergency (ER) | payer MEDICARE, OTHER ==
[~2018-08-30] VITALS: Ht 190.5 cm; Wt 172.4 kg
[~2018-08-30 00:09] MED LIST changes: -Lasix40 MG PO; -Toviaz4 MG PO
[2018-08-30 01:20] LABS: BASOPHILS ABSOLUTE AUTO 0.05 K/mm3 (0.00-0.23); BASOPHILS PERCENT AUTO 1 % (0-2); EOSINOPHILS ABSOLUTE AUTO 0.18 K/mm3 (0.00-0.68); EOSINOPHILS PERCENT AUTO 2 % (0-6); Hematocrit 45.4 % (37.0-53.0); Hemoglobin 14.6 g/dL (13.5-17.5); IMMATURE GRAN ABSOLUTE AUTO 0.03 K/mm3 (0.00-0.10); IMMATURE GRAN PERCENT AUTO 0 % (0-1); LYMPHOCYTES ABSOLUTE AUTO 1.25 K/mm3 (0.84-5.20); LYMPHOCYTES PERCENT AUTO 17 % (21-46); MONOCYTES ABSOLUTE AUTO 0.82 K/mm3 (0.16-1.47); MONOCYTES PERCENT AUTO 11 % (4-13); Mean Corpuscular HGB 29.6 pg (26.0-34.0); Mean Corpuscular HGB Conc 32.2 g/dL (31.5-36.5); Mean Corpuscular Volume 92 fL (80-100); Mean Platelet Volume 11.6 fL (9.1-12.4); NEUTROPHILS ABSOLUTE AUTO 5.19 K/mm3 (1.96-9.15); NEUTROPHILS PERCENT AUTO 69 % (41-73); Platelet Count 203 K/mm3 (150-400); RDW Coefficient Variation 14.5 % (11.7-14.2); RDW Standard Deviation 48.7 fL (35.1-46.3); Red Blood Cell Count 4.94 M/mm3 (4.30-5.90); White Blood Cell Count 7.52 K/mm3 (4.00-11.30)
[2018-08-30 01:35] LABS: U Amphetamine Screen Not Detected; U Barbituate Screen Not Detected; U Benzodiazapine Screen Not Detected; U Buprenorphine Screen Not Detected; U Cannabinoids Screen Not Detected; U Cocaine Screen Not Detected; U Methadone Screen Not Detected; U Methamphetamine Screen Not Detected; U Opiates Screen Not Detected; U Oxycodone Screen DETECTED; U Phencyclidine Screen Not Detected; U Propoxyphene Screen Not Detected
[2018-08-30 01:46] LABS: Ethanol (Alcohol), Blood, Med <3 mg/dL; Salicylate <1.7 mg/dL (2.8-20.0)
[2018-08-30 02:06] LABS: Alanine Aminotransfer (ALT/SGP 34 U/L (12-78); Albumin, Blood 3.2 g/dL (3.4-5.0); Albumin/Globulin Ratio 0.9 (0.8-1.8); Alk Phos 53 U/L (50-136); Anion Gap 2 mmol/L (6-16); Aspartate Aminotrans (AST/SGOT 20 U/L (12-37); Bilirubin, Total 0.4 mg/dL (0.1-1.0); Blood Urea Nitrogen 22 mg/dL (8-24); Bun/Creatinine Ratio 20.8 (12.0-20.0); CO2, Blood 29 mmol/L (21-32); Calcium, Blood 8.7 mg/dL (8.5-10.1); Chloride, Blood 108 mmol/L (98-108); Creatinine, Blood 1.06 mg/dL (0.60-1.20); Globulin, Blood 3.5 g/dL (2.2-4.0); Glomerular Filtration Rate >60 (60-); Glucose, Blood 100 mg/dL (70-99); Potassium, Blood 4.2 mmol/L (3.5-5.5); Sodium, Blood 139 mmol/L (136-145); Total Protein, Blood 6.7 g/dL (6.4-8.2)
[2018-10-22] MEDS ORDERED: FURO40 PO (10:04)
[2018-10-22] MEDS ORDERED: AMLO5 PO (10:04)
[2018-10-22] MEDS ORDERED: POTA10T PO (10:04)
[2018-10-22] MEDS ORDERED: Toviaz4 MG PO (10:05)
[2018-10-22] MEDS ORDERED: FLUO10 PO (13:12)
== END 2018-08-30 07:44 | disposition home or self-care (01) ==
LOC: ER 00:09
PROVIDERS: Emergency Medicine
DX: T40.2X2A Poisoning by other opioids, intentional self-harm, initial encounter (principal); F32.9 Major depressive disorder, single episode, unspecified; Z91.030 Bee allergy status; Z88.8 Allergy status to other drugs, medicaments and biological substances; Z79.899 Other long term (current) drug therapy; I48.91 Unspecified atrial fibrillation; E11.9 Type 2 diabetes mellitus without complications; E78.5 Hyperlipidemia, unspecified; I10 Essential (primary) hypertension; Z87.891 Personal history of nicotine dependence
CPT/HCPCS: 80053; 85025; 99284; G0480

== ENCOUNTER 2018-09-19 17:25 | Emergency (ER) | payer MEDICARE, OTHER ==
[~2018-09-19] VITALS: Ht 190.5 cm; Wt 176.0 kg
[2018-09-19 18:49] LABS: BASOPHILS ABSOLUTE AUTO 0.05 K/mm3 (0.00-0.23); BASOPHILS PERCENT AUTO 1 % (0-2); EOSINOPHILS ABSOLUTE AUTO 0.23 K/mm3 (0.00-0.68); EOSINOPHILS PERCENT AUTO 4 % (0-6); Hemoglobin 14.1 g/dL (13.5-17.5); IMMATURE GRAN ABSOLUTE AUTO 0.01 K/mm3 (0.00-0.10); IMMATURE GRAN PERCENT AUTO 0 % (0-1); LYMPHOCYTES PERCENT AUTO 19 % (21-46); MONOCYTES ABSOLUTE AUTO 0.72 K/mm3 (0.16-1.47); MONOCYTES PERCENT AUTO 13 % (4-13); Mean Corpuscular HGB 30.1 pg (26.0-34.0); Mean Corpuscular HGB Conc 32.8 g/dL (31.5-36.5); Mean Corpuscular Volume 92 fL (80-100); Mean Platelet Volume 12.6 fL (9.1-12.4); NEUTROPHILS PERCENT AUTO 63 % (41-73); Platelet Count 209 K/mm3 (150-400); RDW Coefficient Variation 14.7 % (11.7-14.2); RDW Standard Deviation 49.3 fL (35.1-46.3); Red Blood Cell Count 4.68 M/mm3 (4.30-5.90); White Blood Cell Count 5.41 K/mm3 (4.00-11.30)
[2018-09-19 19:03] LABS: Alanine Aminotransfer (ALT/SGP 38 U/L (12-78); Albumin, Blood 3.2 g/dL (3.4-5.0); Albumin/Globulin Ratio 0.9 (0.8-1.8); Alk Phos 51 U/L (50-136); Anion Gap 7 mmol/L (6-16); Aspartate Aminotrans (AST/SGOT 25 U/L (12-37); Bilirubin, Total 0.4 mg/dL (0.1-1.0); Blood Urea Nitrogen 10 mg/dL (8-24); Bun/Creatinine Ratio 12.8 (12.0-20.0); CO2, Blood 27 mmol/L (21-32); Calcium, Blood 8.8 mg/dL (8.5-10.1); Chloride, Blood 107 mmol/L (98-108); Creatinine, Blood 0.78 mg/dL (0.60-1.20); Globulin, Blood 3.5 g/dL (2.2-4.0); Glomerular Filtration Rate >60 (60-); Glucose, Blood 90 mg/dL (70-99); Potassium, Blood 3.6 mmol/L (3.5-5.5); Sodium, Blood 141 mmol/L (136-145); Total Protein, Blood 6.7 g/dL (6.4-8.2); Troponin I <0.015 ng/mL (0.000-0.040)
[2018-09-19] MEDS ORDERED: Micro-K10 MEQ PO (19:33)
[2018-09-19] MEDS ORDERED: Lasix40 MG PO (19:33)
[2018-10-22] MEDS ORDERED: POTA10T PO (10:04)
[2018-10-22] MEDS ORDERED: AMLO5 PO (10:04)
[2018-10-22] MEDS ORDERED: FURO40 PO (10:04)
[2018-10-22] MEDS ORDERED: Toviaz4 MG PO (10:05)
[2018-10-22] MEDS ORDERED: FLUO10 PO (13:12)
== END 2018-09-19 19:53 | disposition home or self-care (01) ==
LOC: ER 17:25
PROVIDERS: Physician Assistant
DX: E87.70 Fluid overload, unspecified (principal); E66.9 Obesity, unspecified; R60.9 Edema, unspecified; I48.91 Unspecified atrial fibrillation; E11.9 Type 2 diabetes mellitus without complications; E78.5 Hyperlipidemia, unspecified; I10 Essential (primary) hypertension; F32.9 Major depressive disorder, single episode, unspecified; Z91.030 Bee allergy status; Z79.899 Other long term (current) drug therapy; Z87.891 Personal history of nicotine dependence
CPT/HCPCS: 36415; 71046; 80053; 83735; 83880; 84484; 85025; 93005; 93010; 96374; 99285-25; J1940

== ENCOUNTER 2018-10-20 13:20 | Emergency (ER) | payer OTHER, MEDICARE ==
[~2018-10-20] VITALS: Ht 190.5 cm; Wt 167.8 kg
[~2018-10-20 13:20] MED LIST changes: +Lasix40 MG PO
[2018-10-22] MEDS ORDERED: AMLO5 PO (10:04)
[2018-10-22] MEDS ORDERED: FURO40 PO (10:04)
[2018-10-22] MEDS ORDERED: POTA10T PO (10:04)
[2018-10-22] MEDS ORDERED: Toviaz4 MG PO (10:05)
[2018-10-22] MEDS ORDERED: FLUO10 PO (13:12)
== END 2018-10-20 14:18 | disposition home or self-care (01) ==
LOC: ER 13:20
DX: T23.201A Burn of second degree of right hand, unspecified site, initial encounter (principal); T31.0 Burns involving less than 10% of body surface; I10 Essential (primary) hypertension; F32.9 Major depressive disorder, single episode, unspecified; G89.29 Other chronic pain; Z87.442 Personal history of urinary calculi; Z91.038 Other insect allergy status; Z79.899 Other long term (current) drug therapy; X08.8XXA Exposure to other specified smoke, fire and flames, initial encounter
CPT/HCPCS: 16020; 99283-25

== ENCOUNTER 2018-12-26 10:07 | Emergency (ER) | payer MEDICARE ==
[~2018-12-26] VITALS: Ht 193 cm; Wt 164.7 kg
[~2018-12-26 10:07] MED LIST changes: +Toviaz4 MG PO
== END 2018-12-26 11:43 | disposition home or self-care (01) ==
LOC: ER 10:07
DX: S90.31XA Contusion of right foot, initial encounter (principal); I10 Essential (primary) hypertension; E11.9 Type 2 diabetes mellitus without complications; F32.9 Major depressive disorder, single episode, unspecified; Z87.442 Personal history of urinary calculi; Z91.030 Bee allergy status; Z91.048 Other nonmedicinal substance allergy status; Z79.899 Other long term (current) drug therapy; W17.81XA Fall down embankment (hill), initial encounter
CPT/HCPCS: 73630; 99283-25

== ENCOUNTER 2019-02-15 14:13 | Emergency (ER) | payer MEDICARE ==
[~2019-02-15] VITALS: Ht 190.5 cm; Wt 183.7 kg
[2019-02-15] MEDS ORDERED: CRUTCH4 XX (15:42)
== END 2019-02-15 15:57 | disposition home or self-care (01) ==
LOC: ER 14:13
DX: S93.601A Unspecified sprain of right foot, initial encounter (principal); X50.9XXA Other and unspecified overexertion or strenuous movements or postures, initial encounter; Z91.030 Bee allergy status; Z79.899 Other long term (current) drug therapy; I10 Essential (primary) hypertension; F32.9 Major depressive disorder, single episode, unspecified; E11.9 Type 2 diabetes mellitus without complications; I48.91 Unspecified atrial fibrillation
CPT/HCPCS: 73630; 99283-25

== ENCOUNTER 2019-06-15 10:30 | Emergency (ER) | payer MEDICARE, OTHER ==
[~2019-06-15] VITALS: Ht 190.5 cm; Wt 173.7 kg
[~2019-06-15 10:30] MED LIST changes: +CRUTCH4 XX
[2019-06-15 11:16] LABS: BASOPHILS ABSOLUTE AUTO 0.04 K/mm3 (0.00-0.23); BASOPHILS PERCENT AUTO 1 % (0-2); EOSINOPHILS ABSOLUTE AUTO 0.22 K/mm3 (0.00-0.68); EOSINOPHILS PERCENT AUTO 4 % (0-6); Hematocrit 46.8 % (37.0-53.0); Hemoglobin 14.9 g/dL (13.5-17.5); IMMATURE GRAN ABSOLUTE AUTO 0.03 K/mm3 (0.00-0.10); IMMATURE GRAN PERCENT AUTO 1 % (0-1); LYMPHOCYTES ABSOLUTE AUTO 0.88 K/mm3 (0.84-5.20); LYMPHOCYTES PERCENT AUTO 15 % (21-46); MONOCYTES ABSOLUTE AUTO 0.63 K/mm3 (0.16-1.47); MONOCYTES PERCENT AUTO 11 % (4-13); Mean Corpuscular HGB 29.7 pg (26.0-34.0); Mean Corpuscular HGB Conc 31.8 g/dL (31.5-36.5); Mean Corpuscular Volume 93 fL (80-100); Mean Platelet Volume 12.2 fL (9.1-12.4); NEUTROPHILS ABSOLUTE AUTO 3.93 K/mm3 (1.96-9.15); NEUTROPHILS PERCENT AUTO 69 % (41-73); Platelet Count 192 K/mm3 (150-400); RDW Standard Deviation 51.5 fL (35.1-46.3); Red Blood Cell Count 5.02 M/mm3 (4.30-5.90); White Blood Cell Count 5.73 K/mm3 (4.00-11.30)
[2019-06-15 11:35] LABS: Alanine Aminotransfer (ALT/SGP 29 U/L (12-78); Albumin, Blood 3.5 g/dL (3.4-5.0); Alk Phos 102 U/L (50-136); Anion Gap 6 mmol/L (6-16); Aspartate Aminotrans (AST/SGOT 20 U/L (12-37); Bilirubin, Total 0.7 mg/dL (0.1-1.0); Blood Urea Nitrogen 16 mg/dL (8-24); Bun/Creatinine Ratio 20.6 (12.0-20.0); CO2, Blood 28 mmol/L (21-32); Calcium, Blood 8.5 mg/dL (8.5-10.1); Chloride, Blood 106 mmol/L (98-108); Creatinine, Blood 0.78 mg/dL (0.60-1.20); Globulin, Blood 3.4 g/dL (2.2-4.0); Glomerular Filtration Rate >60 (60-); Glucose, Blood 109 mg/dL (70-99); Potassium, Blood 4.3 mmol/L (3.5-5.5); Sodium, Blood 140 mmol/L (136-145); Total Protein, Blood 6.9 g/dL (6.4-8.2)
== END 2019-06-15 14:02 | disposition home or self-care (01) ==
LOC: ER 10:30
PROVIDERS: Emergency Medicine
DX: R07.9 Chest pain, unspecified (principal); R06.00 Dyspnea, unspecified; G47.30 Sleep apnea, unspecified; I10 Essential (primary) hypertension; E11.9 Type 2 diabetes mellitus without complications; I48.91 Unspecified atrial fibrillation; E78.5 Hyperlipidemia, unspecified; F32.9 Major depressive disorder, single episode, unspecified; Z91.030 Bee allergy status; Z79.899 Other long term (current) drug therapy
CPT/HCPCS: 36415; 71046; 71260; 80053; 83880; 84484; 85025; 93005; 93010; 96360; 96361; 99285-25; J7030; Q9967

== ENCOUNTER → 2019-12-03 | Outpatient (CLI) | payer MEDICARE | END | disposition home or self-care (01) | LOC: LAB SHORT 09:22 → PLD 09:22 | DX: C44.41 Basal cell carcinoma of skin of scalp and neck (principal); D48.5 Neoplasm of uncertain behavior of skin; L82.1 Other seborrheic keratosis | CPT/HCPCS: 88305 ==

== ENCOUNTER → 2019-12-06 | Outpatient (CLI) | payer MEDICARE | END | disposition home or self-care (01) | LOC: LAB SHORT 19:26 → LAB 19:26 | DX: R53.83 Other fatigue (principal); M89.9 Disorder of bone, unspecified | CPT/HCPCS: 82306; 84443 ==

== ENCOUNTER → 2019-12-18 | Outpatient (CLI) | payer MEDICARE | END | disposition home or self-care (01) | LOC: LAB SHORT 07:45 → PLD 07:45 | DX: C44.311 Basal cell carcinoma of skin of nose (principal) | CPT/HCPCS: 88305 ==

== ENCOUNTER → 2020-01-10 | Outpatient (CLI) | payer MEDICARE | END | disposition home or self-care (01) | LOC: PLD 15:12 → LAB SHORT 15:12 | DX: C44.311 Basal cell carcinoma of skin of nose (principal) | CPT/HCPCS: 88305 ==

== ENCOUNTER → 2020-02-04 | Outpatient (CLI) | payer MEDICARE ==
[~2020-02-04] MED LIST changes: +LIDO700A20 TOP; +ONDA4ODT MM
[2020-02-04 19:55] LABS: BASOPHILS ABSOLUTE AUTO 0.04 K/mm3 (0.00-0.23); BASOPHILS PERCENT AUTO 1 % (0-2); EOSINOPHILS ABSOLUTE AUTO 0.09 K/mm3 (0.00-0.68); EOSINOPHILS PERCENT AUTO 2 % (0-6); Hemoglobin 16.9 g/dL (13.5-17.5); IMMATURE GRAN ABSOLUTE AUTO 0.02 K/mm3 (0.00-0.10); IMMATURE GRAN PERCENT AUTO 0 % (0-1); LYMPHOCYTES ABSOLUTE AUTO 0.96 K/mm3 (0.84-5.20); LYMPHOCYTES PERCENT AUTO 16 % (21-46); MONOCYTES ABSOLUTE AUTO 0.69 K/mm3 (0.16-1.47); MONOCYTES PERCENT AUTO 11 % (4-13); Mean Corpuscular HGB 29.5 pg (26.0-34.0); Mean Corpuscular HGB Conc 32.5 g/dL (31.5-36.5); Mean Corpuscular Volume 91 fL (80-100); NEUTROPHILS ABSOLUTE AUTO 4.33 K/mm3 (1.96-9.15); NEUTROPHILS PERCENT AUTO 71 % (41-73); Platelet Count 230 K/mm3 (150-400); RDW Coefficient Variation 12.6 % (11.7-14.2); RDW Standard Deviation 42.3 fL (35.1-46.3); Red Blood Cell Count 5.73 M/mm3 (4.30-5.90); White Blood Cell Count 6.13 K/mm3 (4.00-11.30)
[2020-02-04 20:22] LABS: Anion Gap 8 mmol/L (6-16); Blood Urea Nitrogen 21 mg/dL (8-24); Bun/Creatinine Ratio 16.8 (12.0-20.0); CO2, Blood 25 mmol/L (21-32); Calcium, Blood 9.6 mg/dL (8.5-10.1); Chloride, Blood 104 mmol/L (98-108); Creatinine, Blood 1.25 mg/dL (0.60-1.20); Glomerular Filtration Rate >60 (60-); Glucose, Blood 109 mg/dL (70-99); Potassium, Blood 4.3 mmol/L (3.5-5.5); Sodium, Blood 137 mmol/L (136-145)
== END | disposition home or self-care (01) ==
LOC: LAB SHORT 19:16 → PLD 19:16
PROVIDERS: Nurse Practitioner Family
DX: R60.9 Edema, unspecified (principal)
CPT/HCPCS: 80048; 85025

== ENCOUNTER 2020-03-07 02:07 | Emergency (ER) | payer MEDICARE ==
[~2020-03-07] VITALS: Ht 190.5 cm; Wt 189.6 kg
[~2020-03-07 02:07] MED LIST changes: -LIDO700A20 TOP; -ONDA4ODT MM
[2020-03-07 03:36] LABS: Source, Urine Voided
[2020-03-07 03:38] LABS: Bilirubin, Urine Neg (Neg); Blood, Urine 1+ (Neg); Glucose Qualitative, Urine Neg (Neg); Ketones, Urine Neg (Neg); Leukocyte Esterase, Urine 1+ (Neg); Nitrite, Urine Neg (Neg); Protein, Urine Neg (Neg); Urobilinogen, Urine 2+ (Normal)
[2020-03-07 03:52] LABS: Appearance, Urine Clear (Clear); Bacteria Rare /hpf; Color, Urine Yellow (P-Yellow); Red Blood Cells, Urine 0-2 /hpf (0-2); Squamous Epithelial Cells Few /hpf (Few)
[2020-03-07 03:58] LABS: U Amphetamine Screen Not Detected; U Barbituate Screen Not Detected; U Benzodiazapine Screen Not Detected; U Buprenorphine Screen Not Detected; U Cannabinoids Screen Not Detected; U Cocaine Screen Not Detected; U Methadone Screen Not Detected; U Methamphetamine Screen Not Detected; U Opiates Screen DETECTED; U Oxycodone Screen Not Detected; U Phencyclidine Screen Not Detected; U Propoxyphene Screen Not Detected
[2020-03-07] MEDS ORDERED: LIDO700A20 TOP (04:00)
[2020-03-07] MEDS ORDERED: CYCL10 PO (04:00)
== END 2020-03-07 04:23 | disposition home or self-care (01) ==
LOC: ER 02:07
PROVIDERS: Emergency Medicine
DX: M54.5 Low back pain (principal); G89.29 Other chronic pain; I10 Essential (primary) hypertension; Z87.442 Personal history of urinary calculi; Z79.899 Other long term (current) drug therapy; Z91.030 Bee allergy status; Z91.09 Other allergy status, other than to drugs and biological substances
CPT/HCPCS: 81001; 96372; 99283-25; A9270; J1885

== ENCOUNTER 2020-04-22 16:21 | Emergency (ER) | payer MEDICARE ==
[~2020-04-22] VITALS: Ht 190.5 cm; Wt 189.6 kg
[~2020-04-22 16:21] MED LIST changes: +LIDO700A20 TOP
[2020-04-22 17:03] LABS: BASOPHILS ABSOLUTE AUTO 0.06 K/mm3 (0.00-0.23); BASOPHILS PERCENT AUTO 1 % (0-2); EOSINOPHILS ABSOLUTE AUTO 0.01 K/mm3 (0.00-0.68); EOSINOPHILS PERCENT AUTO 0 % (0-6); Hematocrit 51.9 % (37.0-53.0); IMMATURE GRAN ABSOLUTE AUTO 0.02 K/mm3 (0.00-0.10); IMMATURE GRAN PERCENT AUTO 0 % (0-1); LYMPHOCYTES ABSOLUTE AUTO 0.88 K/mm3 (0.84-5.20); LYMPHOCYTES PERCENT AUTO 13 % (21-46); MONOCYTES ABSOLUTE AUTO 0.79 K/mm3 (0.16-1.47); MONOCYTES PERCENT AUTO 12 % (4-13); Mean Corpuscular HGB 29.5 pg (26.0-34.0); Mean Corpuscular HGB Conc 34.7 g/dL (31.5-36.5); Mean Corpuscular Volume 85 fL (80-100); Mean Platelet Volume 12.8 fL (9.1-12.4); NEUTROPHILS ABSOLUTE AUTO 5.07 K/mm3 (1.96-9.15); NEUTROPHILS PERCENT AUTO 74 % (41-73); Platelet Count 264 K/mm3 (150-400); RDW Coefficient Variation 15.3 % (11.7-14.2); RDW Standard Deviation 47.8 fL (35.1-46.3); White Blood Cell Count 6.83 K/mm3 (4.00-11.30)
[2020-04-22 17:22] LABS: Albumin, Blood 3.9 g/dL (3.4-5.0); Bilirubin, Total 1.6 mg/dL (0.1-1.0); Bun/Creatinine Ratio 10.9 (12.0-20.0); Calcium, Blood 10.3 mg/dL (8.5-10.1); Creatinine, Blood 1.38 mg/dL (0.60-1.20); Globulin, Blood 4.1 g/dL (2.2-4.0); Potassium, Blood 3.7 mmol/L (3.5-5.5)
[2020-04-22 19:17] LABS: Source, Urine Clean Catch
[2020-04-22 19:21] LABS: Appearance, Urine Clear (Clear); Bilirubin, Urine Neg (Neg); Blood, Urine 1+ (Neg); Color, Urine Yellow (P-Yellow); Glucose Qualitative, Urine Neg (Neg); Ketones, Urine 2+ (Neg); Leukocyte Esterase, Urine Neg (Neg); Nitrite, Urine Neg (Neg); Protein, Urine 1+ (Neg); Urobilinogen, Urine NORM (Normal)
[2020-04-22 19:26] LABS: Granular Casts 0-2 /lpf (0)
[2020-04-22] MEDS ORDERED: ONDA4ODT MM (19:26)
[2020-04-22 19:27] LABS: Bacteria Few /hpf; Squamous Epithelial Cells Few /hpf (Few)
== END 2020-04-22 19:45 | disposition home or self-care (01) ==
LOC: ER 16:21
PROVIDERS: Physician Assistant
DX: K63.89 Other specified diseases of intestine (principal); I10 Essential (primary) hypertension; I48.91 Unspecified atrial fibrillation; Z91.030 Bee allergy status; Z79.899 Other long term (current) drug therapy; Z87.442 Personal history of urinary calculi
CPT/HCPCS: 36415; 74177; 80053; 81001; 83690; 85025; 96361; 96374-59; 99284-25; A9270; J2405; J7030; Q9967

== ENCOUNTER → 2020-04-29 | Outpatient (CLI) | payer MEDICARE ==
[~2020-04-29] MED LIST changes: +ONDA4ODT MM
[2020-04-29 21:13] LABS: Adenovirus F 40/41 Not Detected (NOT DETECT); Astrovirus Not Detected (NOT DETECT); Campylobacter Sp Not Detected (NOT DETECT); Cryptosporidium Not Detected (NOT DETECT); Cyclospora Cayetanensis Not Detected (NOT DETECT); E. Coli O157 Not Detected (NOT DETECT); Entamoeba Histolytica Not Detected (NOT DETECT); Enteroaggregative E. coli-EAEC Not Detected (NOT DETECT); Enteropathogenic E. coli-EPEC Not Detected (NOT DETECT); Enterotoxigenic E. coli-ETEC Not Detected (NOT DETECT); Giardia Lamblia Not Detected (NOT DETECT); Norovirus GI/GII Not Detected (NOT DETECT); Plesiomonas Shigelloides Not Detected (NOT DETECT); Rotavirus A Not Detected (NOT DETECT); Salmonella Sp Not Detected (NOT DETECT); Sapovirus Not Detected (NOT DETECT); Shiga Toxin-prod E. coli-STEC Not Detected (NOT DETECT); Shigella/Enteroin E. coli-EIEC Not Detected (NOT DETECT); Vibrio Cholerae Not Detected (NOT DETECT); Vibrio Sp Not Detected (NOT DETECT); Yersinia Enterocolitica Not Detected (NOT DETECT)
== END | disposition home or self-care (01) ==
LOC: LAB UCHC 08:00 → LAB SHORT 13:11
PROVIDERS: Nurse Practitioner Family
DX: R19.7 Diarrhea, unspecified (principal)
CPT/HCPCS: 0097U

== ENCOUNTER 2020-05-14 02:43 | Emergency (ER) | payer MEDICARE ==
[~2020-05-14] VITALS: Ht 190.5 cm; Wt 175.1 kg
== END 2020-05-14 06:22 | disposition home or self-care (01) ==
LOC: ER 02:43
DX: S61.211A Laceration without foreign body of left index finger without damage to nail, initial encounter (principal); I10 Essential (primary) hypertension; Z79.899 Other long term (current) drug therapy; Z87.442 Personal history of urinary calculi; Z91.030 Bee allergy status
CPT/HCPCS: 12002; 73130; 90471; 90714; 99283-25

== ENCOUNTER 2020-06-13 08:17 | Day surgery (SDC) | payer MEDICARE, OTHER ==
[~2020-06-13] VITALS: Ht 188 cm; Wt 175.1 kg
--- NOTE | 2020-06-13 09:31 | NUR ---
Patient states colon prep results clear. History, Chart, Medications and Allergies reviewed before start of procedure. Lungs clear T/O to Auscultation. Patient confirms NPO status and agrees with scheduled surgery. Pre-Op teaching done. Pt verbalizes understanding.
--- NOTE | 2020-06-13 09:45 | NUR ---
06/13/20 0945 Gini Villatoro History, Chart, Medications and Allergies reviewed before start of procedure.Patient confirms NPO status and agrees with scheduled surgery.MONITOR INTACT WITH CONTINUOUS PULSE OXIMETRY AND INTERMITTENT BP.O2 VIA N/C INTACT THROUGHOUT SEDATION/PROCEDURE. See Anesthesia record.
--- NOTE | 2020-06-13 12:43 | NUR ---
Discharge instructions reviewed with patient. Patient verbalizes understanding. Copy given to patient to take home. PT USES CRUTCHES TO AMBULATES. BACK TO BASELINE. Discharged via wheelchair to private car for ride home W/
== END 2020-06-13 23:08 | disposition home or self-care (01) ==
LOC: ORSCMMR 08:17 → ORD 10:00 → ORSCMMR 23:08
PROVIDERS: Surgery
PROC: 0DB78ZX Excision of Stomach, Pylorus, Via Natural or Artificial Opening Endoscopic, Diagnostic (ICD-10-PCS; principal; 2020-06-13 10:00)
PROC: 0DB98ZX Excision of Duodenum, Via Natural or Artificial Opening Endoscopic, Diagnostic (ICD-10-PCS; principal; 2020-06-13 10:00)
PROC: 0DBH8ZX Excision of Cecum, Via Natural or Artificial Opening Endoscopic, Diagnostic (ICD-10-PCS; principal; 2020-06-13 10:00)
PROC: 0DB48ZX Excision of Esophagogastric Junction, Via Natural or Artificial Opening Endoscopic, Diagnostic (ICD-10-PCS; principal; 2020-06-13 10:00)
DX: K21.9 Gastro-esophageal reflux disease without esophagitis (principal); K63.89 Other specified diseases of intestine; D12.2 Benign neoplasm of ascending colon; K29.70 Gastritis, unspecified, without bleeding; R11.2 Nausea with vomiting, unspecified; R19.7 Diarrhea, unspecified; R19.4 Change in bowel habit; E66.01 Morbid (severe) obesity due to excess calories; Z68.42 Body mass index [BMI] 45.0-49.9, adult; I48.91 Unspecified atrial fibrillation; I10 Essential (primary) hypertension; G47.33 Obstructive sleep apnea (adult) (pediatric); I50.9 Heart failure, unspecified; Z79.899 Other long term (current) drug therapy
CPT/HCPCS: 88305; 88342; 93005; 93010; J2704; J7120

== ENCOUNTER → 2020-10-24 | Outpatient (CLI) | payer MEDICARE ==
[2020-10-24 13:41] LABS: BASOPHILS ABSOLUTE AUTO 0.05 K/mm3 (0.00-0.23); BASOPHILS PERCENT AUTO 1 % (0-2); EOSINOPHILS ABSOLUTE AUTO 0.15 K/mm3 (0.00-0.68); EOSINOPHILS PERCENT AUTO 3 % (0-6); Hematocrit 49.1 % (37.0-53.0); Hemoglobin 16.3 g/dL (13.5-17.5); IMMATURE GRAN ABSOLUTE AUTO 0.02 K/mm3 (0.00-0.10); IMMATURE GRAN PERCENT AUTO 0 % (0-1); LYMPHOCYTES ABSOLUTE AUTO 0.79 K/mm3 (0.84-5.20); LYMPHOCYTES PERCENT AUTO 14 % (21-46); MONOCYTES ABSOLUTE AUTO 0.67 K/mm3 (0.16-1.47); MONOCYTES PERCENT AUTO 12 % (4-13); Mean Corpuscular HGB 30.2 pg (26.0-34.0); Mean Corpuscular HGB Conc 33.2 g/dL (31.5-36.5); Mean Corpuscular Volume 91 fL (80-100); Mean Platelet Volume 12.2 fL (9.1-12.4); NEUTROPHILS ABSOLUTE AUTO 3.92 K/mm3 (1.96-9.15); NEUTROPHILS PERCENT AUTO 70 % (41-73); Platelet Count 206 K/mm3 (150-400); RDW Coefficient Variation 14.9 % (11.7-14.2); RDW Standard Deviation 49.6 fL (35.1-46.3)
[2020-10-24 15:11] LABS: Alanine Aminotransfer (ALT/SGP 22 U/L (12-78); Albumin, Blood 3.2 g/dL (3.4-5.0); Albumin/Globulin Ratio 0.8 (0.8-1.8); Alk Phos 73 U/L (50-136); Anion Gap 5 mmol/L (6-16); Aspartate Aminotrans (AST/SGOT 14 U/L (12-37); Bilirubin, Total 0.4 mg/dL (0.1-1.0); Blood Urea Nitrogen 16 mg/dL (8-24); Bun/Creatinine Ratio 20.1 (12.0-20.0); CHOL/HDL RATIO 3.3; CO2, Blood 26 mmol/L (21-32); Calcium, Blood 8.5 mg/dL (8.5-10.1); Chloride, Blood 106 mmol/L (98-108); Cholesterol 169 mg/dL (50-200); Glomerular Filtration Rate >60 (60-); Glucose, Blood 106 mg/dL (70-99); HDL Cholesterol 51 mg/dL (>39); Low Density Lipoprotein Chol 103 mg/dL (0-110); Potassium, Blood 3.9 mmol/L (3.5-5.5); Prostate Specific Antigen 0.286 ng/mL (0.000-4.000); Sodium, Blood 137 mmol/L (136-145); Total Protein, Blood 7.2 g/dL (6.4-8.2); Triglycerides 77 mg/dL (30-160); Very Low Density Lipoprot Chol 15 mg/dL (6-32)
== END | disposition home or self-care (01) ==
LOC: LAB 12:43 → LAB SHORT 12:43
PROVIDERS: Nurse Practitioner Family
DX: Z12.5 Encounter for screening for malignant neoplasm of prostate (principal); I11.0 Hypertensive heart disease with heart failure; I50.9 Heart failure, unspecified
CPT/HCPCS: 80053; 80061; 85025; G0103

== ENCOUNTER → 2021-05-11 | Outpatient (CLI) | payer MEDICARE, OTHER ==
[2021-05-11 18:57] LABS: BASOPHILS ABSOLUTE AUTO 0.07 K/mm3 (0.00-0.23); BASOPHILS PERCENT AUTO 1 % (0-2); EOSINOPHILS ABSOLUTE AUTO 0.14 K/mm3 (0.00-0.68); EOSINOPHILS PERCENT AUTO 2 % (0-6); Hematocrit 49.9 % (37.0-53.0); IMMATURE GRAN ABSOLUTE AUTO 0.01 K/mm3 (0.00-0.10); IMMATURE GRAN PERCENT AUTO 0 % (0-1); LYMPHOCYTES ABSOLUTE AUTO 1.19 K/mm3 (0.84-5.20); LYMPHOCYTES PERCENT AUTO 17 % (21-46); MONOCYTES ABSOLUTE AUTO 0.82 K/mm3 (0.16-1.47); MONOCYTES PERCENT AUTO 12 % (4-13); Mean Corpuscular HGB 29.7 pg (26.0-34.0); Mean Corpuscular HGB Conc 32.1 g/dL (31.5-36.5); Mean Corpuscular Volume 93 fL (80-100); Mean Platelet Volume 12.7 fL (9.1-12.4); NEUTROPHILS ABSOLUTE AUTO 4.89 K/mm3 (1.96-9.15); NEUTROPHILS PERCENT AUTO 69 % (41-73); Platelet Count 228 K/mm3 (150-400); RDW Standard Deviation 47.7 fL (35.1-46.3); Red Blood Cell Count 5.39 M/mm3 (4.30-5.90); White Blood Cell Count 7.12 K/mm3 (4.00-11.30)
[2021-05-11 19:18] LABS: Anion Gap 6 mmol/L (6-16); Blood Urea Nitrogen 15 mg/dL (8-24); CO2, Blood 27 mmol/L (21-32); Calcium, Blood 8.7 mg/dL (8.5-10.1); Chloride, Blood 107 mmol/L (98-108); Creatinine, Blood 0.79 mg/dL (0.60-1.20); Glomerular Filtration Rate >60 (60-); Glucose, Blood 90 mg/dL (70-99); Potassium, Blood 4.1 mmol/L (3.5-5.5); Sodium, Blood 140 mmol/L (136-145)
== END | disposition home or self-care (01) ==
LOC: LAB SHORT 17:29
PROVIDERS: Nurse Practitioner Family
DX: R19.7 Diarrhea, unspecified (principal); R10.9 Unspecified abdominal pain; I10 Essential (primary) hypertension
CPT/HCPCS: 80048; 84443; 85025; 87086

== ENCOUNTER 2021-05-13 16:44 | Emergency (ER) | payer MEDICARE, OTHER ==
[~2021-05-13] VITALS: Ht 190.5 cm; Wt 178.7 kg
[2021-05-13 17:11] LABS: BASOPHILS ABSOLUTE AUTO 0.07 K/mm3 (0.00-0.23); BASOPHILS PERCENT AUTO 1 % (0-2); EOSINOPHILS ABSOLUTE AUTO 0.12 K/mm3 (0.00-0.68); EOSINOPHILS PERCENT AUTO 1 % (0-6); Hematocrit 47.9 % (37.0-53.0); IMMATURE GRAN ABSOLUTE AUTO 0.04 K/mm3 (0.00-0.10); IMMATURE GRAN PERCENT AUTO 0 % (0-1); LYMPHOCYTES ABSOLUTE AUTO 0.58 K/mm3 (0.84-5.20); LYMPHOCYTES PERCENT AUTO 6 % (21-46); MONOCYTES ABSOLUTE AUTO 1.12 K/mm3 (0.16-1.47); MONOCYTES PERCENT AUTO 11 % (4-13); Mean Corpuscular HGB 30.3 pg (26.0-34.0); Mean Corpuscular HGB Conc 33.4 g/dL (31.5-36.5); Mean Corpuscular Volume 91 fL (80-100); Mean Platelet Volume 12.3 fL (9.1-12.4); NEUTROPHILS ABSOLUTE AUTO 7.87 K/mm3 (1.96-9.15); NEUTROPHILS PERCENT AUTO 80 % (41-73); Platelet Count 310 K/mm3 (150-400); RDW Coefficient Variation 14.1 % (11.7-14.2); RDW Standard Deviation 47.5 fL (35.1-46.3); Red Blood Cell Count 5.28 M/mm3 (4.30-5.90)
[2021-05-13 18:17] LABS: Albumin, Blood 3.4 g/dL (3.4-5.0); Albumin/Globulin Ratio 0.9 (0.8-1.8); Bilirubin, Total 0.5 mg/dL (0.1-1.0); Bun/Creatinine Ratio 10.8 (12.0-20.0); Calcium, Blood 9.3 mg/dL (8.5-10.1); Creatinine, Blood 1.95 mg/dL (0.60-1.20); Globulin, Blood 3.8 g/dL (2.2-4.0); Total Protein, Blood 7.2 g/dL (6.4-8.2)
== END 2021-05-13 19:41 | disposition home or self-care (01) ==
LOC: ER 16:44
PROVIDERS: Emergency Medicine
DX: R07.9 Chest pain, unspecified (principal); I10 Essential (primary) hypertension; G47.30 Sleep apnea, unspecified; Z91.030 Bee allergy status; Z79.899 Other long term (current) drug therapy
CPT/HCPCS: 71045; 80053; 83690; 83880; 84484; 85025; 93005; 93010; 99285-25; J7030

== ENCOUNTER → 2021-08-07 | Outpatient (CLI) | payer MEDICARE, OTHER ==
[2021-08-07 18:10] LABS: BASOPHILS ABSOLUTE AUTO 0.04 K/mm3 (0.00-0.23); BASOPHILS PERCENT AUTO 1 % (0-2); EOSINOPHILS ABSOLUTE AUTO 0.21 K/mm3 (0.00-0.68); EOSINOPHILS PERCENT AUTO 4 % (0-6); Hematocrit 48.1 % (37.0-53.0); Hemoglobin 16.1 g/dL (13.5-17.5); IMMATURE GRAN ABSOLUTE AUTO 0.02 K/mm3 (0.00-0.10); IMMATURE GRAN PERCENT AUTO 0 % (0-1); LYMPHOCYTES ABSOLUTE AUTO 0.99 K/mm3 (0.84-5.20); LYMPHOCYTES PERCENT AUTO 18 % (21-46); MONOCYTES ABSOLUTE AUTO 0.72 K/mm3 (0.16-1.47); MONOCYTES PERCENT AUTO 13 % (4-13); Mean Corpuscular HGB 30.7 pg (26.0-34.0); Mean Corpuscular HGB Conc 33.5 g/dL (31.5-36.5); Mean Corpuscular Volume 92 fL (80-100); Mean Platelet Volume 12.4 fL (9.1-12.4); NEUTROPHILS ABSOLUTE AUTO 3.66 K/mm3 (1.96-9.15); NEUTROPHILS PERCENT AUTO 65 % (41-73); Platelet Count 241 K/mm3 (150-400); RDW Coefficient Variation 14.6 % (11.7-14.2); RDW Standard Deviation 49.3 fL (35.1-46.3); Red Blood Cell Count 5.25 M/mm3 (4.30-5.90); White Blood Cell Count 5.64 K/mm3 (4.00-11.30)
[2021-08-07 18:21] LABS: Albumin, Blood 3.3 g/dL (3.4-5.0); Albumin/Globulin Ratio 0.9 (0.8-1.8); Bilirubin, Total 0.5 mg/dL (0.1-1.0); Bun/Creatinine Ratio 11.7 (12.0-20.0); Calcium, Blood 8.6 mg/dL (8.5-10.1); Creatinine, Blood 1.2 mg/dL (0.60-1.20); Globulin, Blood 3.7 g/dL (2.2-4.0); Potassium, Blood 4.3 mmol/L (3.5-5.5)
== END | disposition home or self-care (01) ==
LOC: LAB SHORT 17:57 → LAB 17:57
PROVIDERS: Physician Assistant
DX: R07.9 Chest pain, unspecified (principal); R06.00 Dyspnea, unspecified
CPT/HCPCS: 80053; 83880; 84484; 85025; 85379

== ENCOUNTER → 2021-08-28 | Outpatient (CLI) | payer MEDICARE, OTHER | END | disposition home or self-care (01) | LOC: LAB 15:43 → LAB SHORT 15:43 | DX: N39.0 Urinary tract infection, site not specified (principal) | CPT/HCPCS: 87086 ==

== ENCOUNTER 2021-11-16 10:52 | Inpatient (IN) | payer MEDICARE, OTHER ==
[~2021-11-16] VITALS: Ht 190.5 cm; Wt 190.2 kg
[~2021-11-16 10:52] MED LIST changes: -GABA600 PO; +LOSARTAN POTAS100 M1 PO; -LOSARTAN POTAS100 MG PO
[2021-11-16 11:42] LABS: BASOPHILS ABSOLUTE AUTO 0.05 K/mm3 (0.00-0.23); BASOPHILS PERCENT AUTO 1 % (0-2); EOSINOPHILS ABSOLUTE AUTO 0.23 K/mm3 (0.00-0.68); EOSINOPHILS PERCENT AUTO 3 % (0-6); Hematocrit 51.3 % (37.0-53.0); Hemoglobin 16.7 g/dL (13.5-17.5); IMMATURE GRAN ABSOLUTE AUTO 0.03 K/mm3 (0.00-0.10); IMMATURE GRAN PERCENT AUTO 0 % (0-1); LYMPHOCYTES ABSOLUTE AUTO 0.85 K/mm3 (0.84-5.20); LYMPHOCYTES PERCENT AUTO 12 % (21-46); MONOCYTES ABSOLUTE AUTO 0.67 K/mm3 (0.16-1.47); MONOCYTES PERCENT AUTO 10 % (4-13); Mean Corpuscular HGB 30.2 pg (26.0-34.0); Mean Corpuscular HGB Conc 32.6 g/dL (31.5-36.5); Mean Corpuscular Volume 93 fL (80-100); NEUTROPHILS ABSOLUTE AUTO 5.25 K/mm3 (1.96-9.15); NEUTROPHILS PERCENT AUTO 74 % (41-73); Platelet Count 275 K/mm3 (150-400); RDW Coefficient Variation 13.6 % (11.7-14.2); RDW Standard Deviation 46.5 fL (35.1-46.3); Red Blood Cell Count 5.53 M/mm3 (4.30-5.90); White Blood Cell Count 7.08 K/mm3 (4.00-11.30)
[2021-11-16 11:59] LABS: Albumin, Blood 3.3 g/dL (3.4-5.0); Albumin/Globulin Ratio 0.8 (0.8-1.8); Bilirubin, Total 0.5 mg/dL (0.1-1.0); Bun/Creatinine Ratio 20.8 (12.0-20.0); Calcium, Blood 9.2 mg/dL (8.5-10.1); Creatinine, Blood 0.96 mg/dL (0.60-1.20); Globulin, Blood 4.1 g/dL (2.2-4.0); Potassium, Blood 4.2 mmol/L (3.5-5.5); Total Protein, Blood 7.4 g/dL (6.4-8.2)
[2021-11-16 13:28] LABS: Influenza A, PCR NEGATIVE (NEGATIVE); Influenza B, PCR NEGATIVE (NEGATIVE); Resp Syncytial Virus, PCR NEGATIVE (NEGATIVE); SARS-Cov-2 (COVID-19) PCR, MMC NEGATIVE (NEGATIVE)
[2021-11-16] MEDS ORDERED: ALBU90OI INH (16:37)
[2021-11-16] MEDS ORDERED: AIRDUO RESPICL1 EAC5 INH (16:37)
[2021-11-16] MEDS ORDERED: BACL10 PO (16:38)
[2021-11-16] MEDS ORDERED: CARV3.125 PO (16:39)
[2021-11-16] MEDS ORDERED: Flonase 0.05% N16 GM (16:39)
[2021-11-16] MEDS ORDERED: SPIR25 PO (16:40)
[2021-11-16] MEDS ORDERED: TORSE20 PO (16:40)
[2021-11-16] MEDS ORDERED: Norco 7.5-3251 EACH PO (16:41)
--- NOTE | 2021-11-16 18:39 | NUR ---
SHIFT SUMMARY PT AXO, PLEASANT AND COOPERATIVE WITH CARE. PT ARRIVED TO ROOM AT 1615, ADMISSION COMPLETE AND MEDICATIONS RECONCILED WITH HIS "NURSE FRIEND" WHO WORKS AT HIS DR'S OFFICE. DR CURRIE NOTIFIED OF BP OD 193/144, NEW ORDERS PLACED AND MEDICATED PER EMAR. ON TELE, A-FIB. SCDS IN PLACE. CPAP ORDERED PER DR CURRIE, RT NOTIFIED. PT STATES HE'S AFRAID TO SLEEP BECAUSE HE STOPS BREATHING. STRICT I&O, FLUID RESTRICTION IN PLACE. 525ML OUT SO FAR THIS SHIFT. HUNTER IN REASSESSING BP AT THIS TIME. BED IN LOW POSITION, CALL LIGHT WITHIN REACH.
[2021-11-16 20:46] LABS: Source, Urine Clean Catch
[2021-11-16 21:05] LABS: Appearance, Urine Clear (Clear); Bilirubin, Urine Neg (Neg); Blood, Urine Neg (Neg); Glucose Qualitative, Urine Neg (Neg); Ketones, Urine Neg (Neg); Leukocyte Esterase, Urine Neg (Neg); Nitrite, Urine Neg (Neg); Protein, Urine Neg (Neg); Specific Gravity, Urine 1.015 (1.003-1.022); Urobilinogen, Urine NORM (Normal)
[2021-11-16 21:17] LABS: Color, Urine Pale Yellow (P-Yellow)
[2021-11-17 05:48] LABS: Prostate Specific Antigen 0.218 ng/mL (0.000-4.000)
[2021-11-17 05:49] LABS: Anion Gap 8 mmol/L (6-16); Blood Urea Nitrogen 19 mg/dL (8-24); Bun/Creatinine Ratio 21.3 (12.0-20.0); CO2, Blood 28 mmol/L (21-32); Calcium, Blood 8.6 mg/dL (8.5-10.1); Chloride, Blood 103 mmol/L (98-108); Creatinine, Blood 0.89 mg/dL (0.60-1.20); Glomerular Filtration Rate 93 (60-); Glucose, Blood 105 mg/dL (70-99); Potassium, Blood 3.8 mmol/L (3.5-5.5); Sodium, Blood 139 mmol/L (136-145)
--- NOTE | 2021-11-17 06:14 | NUR ---
LOBSTERMAN SUMMARY PT AOX/4. ON TELE; AFIB W/HR IN THE 60'S. PT IS NOT CURRENTLY ON ANTICOAGULANTS. PT CONSULTED W/RT AND REFUSED TO WEAR CPAP MACHINE; PT HAS ORDER FOR O2 BUT SATS WERE ABOVE 92% WHEN CHECKED; NO O2 WAS ADMINISTERED. PT WOKE UP THIS AM COMPLAINING OF SEVERE HEADACHE. PT SYS BP WAS 180; ADMINISTERED APRESOLINE; SYS 167 UPON RECHECK. PT HAS ORDER FOR HEAD OF BED TO BE ELEVATED; PT REFUSED TO ELEVATE THE HEAD OF BED; EDUCATED MULTIPLE TIMES ON THE BENEFIT SITTING UPRIGHT FOR BETTER BREATHING/OXYGENATION. PT CALLS APPROPRIATELY; CALL LIGHT IS IN REACH. PT USING BEDSIDE URINAL. REPORTS USED A CANE AT HOME; WILL USE FWW WHEN HE NEEDS TO XFER TO TOILET/BSC.
--- NOTE | 2021-11-17 13:40 | NUR ---
WOOL PRESSER CALLED TO REPORT A 4 SECOND RUN OF NIMCO IN THE 30'S. PATIENT IS NOT AWARE AND IS NOT COMPLAINING OF ANY CARDIAC RELATED SYMTOMS. HE WAS GIVEN A DOSE OF TORODOL IV A WHILE AGO- ONE TIME DOSE. JUST TO NOTE.
--- NOTE | 2021-11-17 16:01 | NUR ---
10 MG HYDROZOLINE GIVEN AT 1600. BP 171/126, 67, 95% 2 L NC. PATIENT STATES HE FEELS LIKE HE CAN NOT GET A BREATH. O2 IS AT 2LNC, AND SATS ARE GOOD.
--- NOTE | 2021-11-17 16:06 | NUR ---
Upon receiving a referral for spiritual care, I visit pt. Pt tells me about his medical problems, his career as a fork truck driver, his family unit complications, and the horrible living conditions he is living in (in a camper without electricity or drapery sewer hand). Pt is tearful at times as he tells me about his suicidal ideation and how the loss of his career and his close relationships spun him out. He is thankful for his Office Machine Inspector at [facility] who has brought much strength and support. I normalize pt's experience, explore sources of meaning and dignity, encouraged self-care, and provide therapeutic listening, pastoral counselor marriage and family, anxiety containment and prayer. Pt responds well and shows signs of an increase in peace. I will continue to remain available to pt and family.
--- NOTE | 2021-11-17 16:47 | NUR ---
PATIENT EXPERIENCING SOB, LIKE "i CANT GET A BREATH IN". BP HAS BEEN HIGH. HE WAS GIVEN HYDRALAZOLINE 10 MG PRN- SEE NURSING NOTE. APPETITE IS GOOD, BUT HE COMPLAINS ABOUT THE FOOD AND THE SMALL AMOUNT OF FOOD AND FLUID HE IS GIVEN. FLUID RESTRICTION IS IN PLACE OF 1000. PAIN REPORTED IN THE RIGHT FLANK, MID ABD, AND LEGS. MEDICATION CHANGED TOOK PLACE TONIGHT. COREG WHICH IS DC WAS GIVEN BEFORE THE CHANGE CAME THROUGH, SO THE PROVIDER WRITING ORDERS STATED TO HOLD HIS [facility] TONIGHT AND START IT TOMORROW MORNING. (THIS WOULD HAVE BEEN A NEW MED TONIGHT). GENERAL CONDITION OF PATIENT APPEARS TO BE ILL, AND STILL REQUIRING HOSPITALIZATION.
--- NOTE | 2021-11-18 03:30 | NUR ---
ELECTRIC TRUCK OPERATOR SUMMARY BP REMAINS ELEVATED, OTHERWISE VSS. RECEIVED ANTIHYPERTENSIVE PER MD ORDERS - SEE MAR FOR DETAILS. WILL CONTINUE TO MONITOR. VERBALIZED SOME ANXIETY RE RETAINING FLUIDS. (TAKES LASIX BID FOR THIS). URINAL EMPTIED, REASURRANCE GIVEN. HAS BEEN RESTING QUIETLY WITH FEW INTERUPTIONS SINCE HIS CONVERSATION. RESPS CONGESTED PER AUSCULTATION. O2 PER NC. CALL LIGHT IN REACH.
[2021-11-18 05:31] LABS: Base Excess Venous 7.5 mmol/L; Bicarbonate Venous 28.6 mmol/L (24.0-30.0); PCO2 Venous 57.4 mmHg (38-42); pH Blood Venous 7.37 (7.34-7.37)
[2021-11-18 05:54] LABS: Hematocrit 51.2 % (37.0-53.0); Hemoglobin 17.1 g/dL (13.5-17.5)
[2021-11-18 06:18] LABS: Bun/Creatinine Ratio 26.2 (12.0-20.0); Calcium, Blood 9.1 mg/dL (8.5-10.1); Creatinine, Blood 1.07 mg/dL (0.60-1.20); Potassium, Blood 4.2 mmol/L (3.5-5.5)
--- NOTE | 2021-11-18 19:54 | NUR ---
SHIFT SUMMARY 66-YEAR-OLD PLEASANT MALE WITH CHF AND FLUID OVERLOAD WAS NOTED TO BE ANXIOUS OVER NOT GETTING ENOUGH FLUIDS OFF, THIS SHIFT HE VOIDED SEVERAL TIMES AND AFTER FELT REASSURED TREATMENT WAS WORKING. 1-PERSON ASSIST WITH FWW NOTED, ALTHOUGH PRN WAS UP BY SELF TO BATHROOM DUE AND WAS NOTED TO BE SLOW BUT STEADY ON FEET. PERIPHERAL IV TO L AC. 4L O2, REFUSES CPAP AT NIGHT. TELEMETRY: A-FIB, HR 67 THIS SHIFT. PTN ON 2G SODIUM DIET AND WILL HAVE DIETARY CONSULT FOR EDUCATION OF SAME. 1500 ML FLUID RESTRICTION. CONTINUE TO MONITOR.
--- NOTE | 2021-11-19 04:40 | NUR ---
end of shift vitals not taken due to being in a sleep study. was told not to wake.
[2021-11-19 07:03] LABS: Bun/Creatinine Ratio 30.8 (12.0-20.0); Creatinine, Blood 1.2 mg/dL (0.60-1.20); Potassium, Blood 4.1 mmol/L (3.5-5.5)
--- NOTE | 2021-11-19 07:58 | NUR ---
SHIFT SUMMARY: PT A/O X 4, ONE ASSIST TO BATHROOM. PT HAD OVERNIGHT OXIMETRY TEST LAST NIGHT AND SLEPT THROUGH THE NIGHT. NO ADVERSE EVENTS REPORTED FROM TELE. PT DID NOT C/O PAIN. PT DID HAVE CONCERNS HE IS NOT LOSING WEIGHT. HE REPORTS HE DOES NOT FEEL THE LASIX IS WORKING APPROPRIATELY. PT DID REPORT HE DID NOT USE THE HAT TO URINATE IN. PT ADVISED HIS OUTPUT NEEDS TO BE MEASURED SO HE NEEDS TO URINATE IN URINAL. PT VU AND WAS COMPLIANT WITH USING URINAL AND ALSO COMPLIANT WITH FLUID RESTRICTION. NO OTHER CONCERNS REPORTED BY PT THROUGH THE NIGHT.
[2021-11-19] MEDS ORDERED: AMLO5 PO (12:40)
[2021-11-19] MEDS ORDERED: Flomax0.4 MG PO (12:40)
[2021-11-19] MEDS ORDERED: ELIQUIS5 M2 PO (12:40)
[2021-11-19] MEDS ORDERED: Sanctura20 MG PO (12:41)
--- NOTE | 2021-11-19 18:29 | NUR ---
SHIFT SUMMARY PTN WAS SCHEDULED TO RELEASE TODAY BUT DECISION MADE TO FURTHER DIURESE. PTN SEEN BY CLAIM APPROVER AND EDUCATION DONE RELATED TO SODIUM IN FOODS. PLANS IN THE WORKS FOR OXYGEN AT HOME AND CPAP. PTN DID NOT WEAR CPAP AT HOME DUE TO MASK FIT. OXYGEN ALSO NOT AVAILABLE TO HIM AT HOME. PTN HAS NO ELECTRICITY IN HIS HOME SETTING. CASE MANAGEMENT WORKING WITH PTN. CONTINUE TO MONITOR.
--- NOTE | 2021-11-20 04:17 | NUR ---
A/OX4; ANXIOUS AT TIMES AND COOPERATIVE. NO SOB OBSERVED AT REST. LUNGS DIMINISHED THROUGHOUT. 4 L O2 VIA NC CURRENTLY. DENIES PAIN AT THIS TIME. TELE: A-FIB. EDEMA 2+. 1X ASSIST WITH FWW PER REPORT (NOT OOB THIS SHIFT). BED ALARM SET, ENCOURAGED TO MAKE NEEDS KNOWN, CALL LIGHT IN REACH.
[2021-11-20 05:50] LABS: Bun/Creatinine Ratio 32.2 (12.0-20.0); Calcium, Blood 8.9 mg/dL (8.5-10.1); Creatinine, Blood 1.18 mg/dL (0.60-1.20); Potassium, Blood 4.2 mmol/L (3.5-5.5)
--- NOTE | 2021-11-20 17:29 | NUR ---
SHIFT SUMMARY PATIENT DENIES PAIN, NAUSEA, AND SHORTNESS OF BREATH. 95% ON ROOM AIR. UP SBA W/FWW TO BATHROOM. GOOD APPETITE. CONTINUING DIURESIS. CARE MANAGEMENT WORKING WITH PATIENT TO OBTAIN CPAP/GENERATOR FOR HIS HOME.
--- NOTE | 2021-11-21 04:34 | NUR ---
A/OX4; ANXIOUS AT TIMES. SITKA. C/O BACK PAIN; PRN NORCO GIVEN WITH ADEQUATE RELIEF PER PATIENT. 1X ASSIST WITH FWW. CALL LIGHT IN REACH; ENCOURAGED TO MAKE NEEDS KNOWN.
[2021-11-21 06:19] LABS: Bun/Creatinine Ratio 35.2 (12.0-20.0); Calcium, Blood 8.6 mg/dL (8.5-10.1); Creatinine, Blood 1.05 mg/dL (0.60-1.20); Potassium, Blood 4.2 mmol/L (3.5-5.5)
--- NOTE | 2021-11-22 05:05 | NUR ---
SHIFT SUMMARY PATIENT ALERT AND ORIENTED X3-4. MEDICATED PER EMAR FOR PAIN. HAD NO COMPLAINTS OF SHORTNESS OF BREATH. NO ACUTE ISSUES NOTED OVERNIGHT. CALL LIGHT WITHIN REACH. REPORT GIVEN TO ONCOMING RN.
[2021-11-22 05:52] LABS: Bun/Creatinine Ratio 30.9 (12.0-20.0); Calcium, Blood 9.3 mg/dL (8.5-10.1); Creatinine, Blood 1.23 mg/dL (0.60-1.20); Potassium, Blood 3.8 mmol/L (3.5-5.5)
--- NOTE | 2021-11-22 18:42 | NUR ---
ALERT AND ORIENTED, EMOTIONAL ALL DAY, ARGUING WITH , DISCHARGE ORDERS HELD DUE TO HOME O2 EVAL AND HOME OXYGEN NEEDS BECAUSE PATIENT DOES NOT HAVE ELECTRICITY AT HOME, PATIENT REPORTS "I DONT WANT ELECTRICITY I LIKE IT BETTER WITHOUT ELECTRICITY". NO ACUTE CHANGES, CALL LIGHT WITH IN REACH. WCLITZY, WILL RELAY TO PM RN
[2021-11-23 04:54] LABS: Albumin, Blood 3.3 g/dL (3.4-5.0); Anion Gap 7 mmol/L (6-16); Blood Urea Nitrogen 44 mg/dL (8-24); Bun/Creatinine Ratio 36.1 (12.0-20.0); CO2, Blood 33 mmol/L (21-32); Calcium, Blood 9.6 mg/dL (8.5-10.1); Chloride, Blood 96 mmol/L (98-108); Creatinine, Blood 1.22 mg/dL (0.60-1.20); Glomerular Filtration Rate 65 (60-); Glucose, Blood 120 mg/dL (70-99); Potassium, Blood 3.7 mmol/L (3.5-5.5); Sodium, Blood 136 mmol/L (136-145)
--- NOTE | 2021-11-23 17:10 | NUR ---
PT DISCHARGED HOME. MEDICATIONS FAXED TO PHARMACY. PROVIDED PT WITH DISCHARGE MEDICATION LIST AND EDUCATION. PT VERBALIZED UNDERSTANDING AND HAD NO FUTHER QUESTIONS. BELONGING RETURNED TO PT. IV REMOVED. PT TRANSPORTED BY WHELLCHAIR TO WAITING VEHICLE.
== END 2021-11-23 15:51 | disposition home health service (06) | DRG 291 ==
LOC: ER 10:52 → MEDS 10:53 → ENPENDDIS 11-19 16:44 → MEDS 11-23 15:51
PROVIDERS: Emergency Medicine; Family Medicine; ADMIT Family Medicine Adult Medicine
DX: I11.0 Hypertensive heart disease with heart failure (principal); I50.33 Acute on chronic diastolic (congestive) heart failure; E66.2 Morbid (severe) obesity with alveolar hypoventilation; N13.8 Other obstructive and reflux uropathy; Z68.43 Body mass index [BMI] 50.0-59.9, adult; M54.9 Dorsalgia, unspecified; G89.29 Other chronic pain; F32.A Depression, unspecified; M47.9 Spondylosis, unspecified; F17.220 Nicotine dependence, chewing tobacco, uncomplicated; E78.5 Hyperlipidemia, unspecified; I25.10 Atherosclerotic heart disease of native coronary artery without angina pectoris; N40.1 Benign prostatic hyperplasia with lower urinary tract symptoms; E87.6 Hypokalemia; I48.0 Paroxysmal atrial fibrillation; Z91.198 Patient's noncompliance with other medical treatment and regimen for other reason; Z87.442 Personal history of urinary calculi; Z98.890 Other specified postprocedural states; Z91.048 Other nonmedicinal substance allergy status; Z91.038 Other insect allergy status
CPT/HCPCS: 0241U; 36415; 71046; 80048; 80053; 80069; 81003; 82803; 83735; 83880; 84484; 85014; 85018; 85025; 93005; 93010; 94640; 94660; 94664; 94760; 94761; 94762; 96374; 96375; 96376; 97110; 97116; 97162; 97530; 99285-25; A9270; G0103; G0378; J0360; J1885; J1940

== ENCOUNTER 2022-02-07 13:33 | Emergency (ER) | payer MEDICARE, OTHER ==
[~2022-02-07] VITALS: Ht 190.5 cm; Wt 181.4 kg
[~2022-02-07 13:33] MED LIST changes: +AIRDUO RESPICL1 EAC5 INH; +BACL10 PO; +CARV3.125 PO; +ELIQUIS5 M2 PO; +Flomax0.4 MG PO; +Flonase 0.05% N16 GM; +Norco 7.5-3251 EACH PO; +SPIR25 PO; +Sanctura20 MG PO; +TORSE20 PO
[2022-02-07 14:53] LABS: BASOPHILS ABSOLUTE AUTO 0.06 K/mm3 (0.00-0.23); BASOPHILS PERCENT AUTO 1 % (0-2); EOSINOPHILS ABSOLUTE AUTO 0.16 K/mm3 (0.00-0.68); EOSINOPHILS PERCENT AUTO 2 % (0-6); Hematocrit 45.5 % (37.0-53.0); Hemoglobin 15.3 g/dL (13.5-17.5); IMMATURE GRAN ABSOLUTE AUTO 0.04 K/mm3 (0.00-0.10); IMMATURE GRAN PERCENT AUTO 1 % (0-1); LYMPHOCYTES ABSOLUTE AUTO 0.98 K/mm3 (0.84-5.20); LYMPHOCYTES PERCENT AUTO 11 % (21-46); MONOCYTES ABSOLUTE AUTO 0.83 K/mm3 (0.16-1.47); MONOCYTES PERCENT AUTO 10 % (4-13); Mean Corpuscular HGB 31.2 pg (26.0-34.0); Mean Corpuscular HGB Conc 33.6 g/dL (31.5-36.5); Mean Corpuscular Volume 93 fL (80-100); NEUTROPHILS ABSOLUTE AUTO 6.65 K/mm3 (1.96-9.15); NEUTROPHILS PERCENT AUTO 76 % (41-73); Platelet Count 230 K/mm3 (150-400); RDW Coefficient Variation 14.3 % (11.7-14.2); RDW Standard Deviation 48.6 fL (35.1-46.3); Red Blood Cell Count 4.91 M/mm3 (4.30-5.90); White Blood Cell Count 8.72 K/mm3 (4.00-11.30)
[2022-02-07 15:10] LABS: Albumin, Blood 3.2 g/dL (3.4-5.0); Albumin/Globulin Ratio 0.8 (0.8-1.8); Bilirubin, Total 0.6 mg/dL (0.1-1.0); Bun/Creatinine Ratio 21.5 (12.0-20.0); Calcium, Blood 8.6 mg/dL (8.5-10.1); Creatinine, Blood 0.98 mg/dL (0.60-1.20); Globulin, Blood 3.9 g/dL (2.2-4.0); Potassium, Blood 4.7 mmol/L (3.5-5.5); Total Protein, Blood 7.1 g/dL (6.4-8.2)
== END 2022-02-07 19:40 | disposition home or self-care (01) ==
LOC: ER 13:33
PROVIDERS: Physician Assistant
DX: R42 Dizziness and giddiness (principal); I11.0 Hypertensive heart disease with heart failure; I50.9 Heart failure, unspecified; I48.91 Unspecified atrial fibrillation; N40.0 Benign prostatic hyperplasia without lower urinary tract symptoms; G47.30 Sleep apnea, unspecified; Z91.030 Bee allergy status; Z79.899 Other long term (current) drug therapy; Z79.01 Long term (current) use of anticoagulants
CPT/HCPCS: 36415; 71046; 80053; 83880; 84484; 85025; 93005; 93010; J1940

== ENCOUNTER 2022-02-09 16:23 | Emergency (ER) | payer MEDICARE, OTHER ==
[~2022-02-09] VITALS: Ht 190.5 cm; Wt 181.4 kg
[2022-02-09 17:57] LABS: BASOPHILS ABSOLUTE AUTO 0.04 K/mm3 (0.00-0.23); BASOPHILS PERCENT AUTO 1 % (0-2); EOSINOPHILS ABSOLUTE AUTO 0.06 K/mm3 (0.00-0.68); EOSINOPHILS PERCENT AUTO 1 % (0-6); Hematocrit 46.2 % (37.0-53.0); Hemoglobin 15.5 g/dL (13.5-17.5); IMMATURE GRAN ABSOLUTE AUTO 0.03 K/mm3 (0.00-0.10); IMMATURE GRAN PERCENT AUTO 0 % (0-1); LYMPHOCYTES ABSOLUTE AUTO 1.16 K/mm3 (0.84-5.20); LYMPHOCYTES PERCENT AUTO 14 % (21-46); MONOCYTES PERCENT AUTO 9 % (4-13); Mean Corpuscular HGB 30.6 pg (26.0-34.0); Mean Corpuscular HGB Conc 33.5 g/dL (31.5-36.5); Mean Corpuscular Volume 91 fL (80-100); Mean Platelet Volume 11.4 fL (9.1-12.4); NEUTROPHILS ABSOLUTE AUTO 6.24 K/mm3 (1.96-9.15); NEUTROPHILS PERCENT AUTO 76 % (41-73); Platelet Count 243 K/mm3 (150-400); RDW Coefficient Variation 14.3 % (11.7-14.2); Red Blood Cell Count 5.07 M/mm3 (4.30-5.90); White Blood Cell Count 8.23 K/mm3 (4.00-11.30)
[2022-02-09 18:27] LABS: Albumin, Blood 3.5 g/dL (3.4-5.0); Albumin/Globulin Ratio 0.9 (0.8-1.8); Bilirubin, Total 0.5 mg/dL (0.1-1.0); Creatinine, Blood 0.95 mg/dL (0.60-1.20); Globulin, Blood 3.8 g/dL (2.2-4.0); Potassium, Blood 4.4 mmol/L (3.5-5.5); Total Protein, Blood 7.3 g/dL (6.4-8.2)
[2022-02-09 22:28] LABS: Base Excess Venous 3.4 mmol/L; Bicarbonate Venous 26.8 mmol/L (24.0-30.0); PCO2 Venous 42.2 mmHg (38-42); pH Blood Venous 7.43 (7.34-7.37)
[2022-02-10 00:44] LABS: Influenza A, PCR NEGATIVE (NEGATIVE); Influenza B, PCR NEGATIVE (NEGATIVE); Resp Syncytial Virus, PCR NEGATIVE (NEGATIVE); SARS-Cov-2 (COVID-19) PCR, MMC NEGATIVE (NEGATIVE)
[2022-02-10] MEDS ORDERED: ONDA4ODT MM (01:15)
== END 2022-02-10 01:52 | disposition home or self-care (01) ==
LOC: ER 16:23
PROVIDERS: Physician Assistant; Student in an Organized Health Care Education/Training Program
DX: J81.1 Chronic pulmonary edema (principal); R06.02 Shortness of breath; I11.0 Hypertensive heart disease with heart failure; I50.9 Heart failure, unspecified; I48.91 Unspecified atrial fibrillation; Z20.822 Contact with and (suspected) exposure to COVID-19; Z91.038 Other insect allergy status; Z79.899 Other long term (current) drug therapy; Z79.01 Long term (current) use of anticoagulants
CPT/HCPCS: 0241U; 36415; 71046; 80053; 82803; 83880; 84484; 85025; 93005; 93010; J1940; J2405

== ENCOUNTER → 2022-07-20 | Outpatient (CLI) | payer MEDICARE, OTHER ==
[2022-07-20 20:08] LABS: Uric Acid, Blood 8.3 mg/dL (3.5-7.2)
[2022-07-20 20:15] LABS: Bun/Creatinine Ratio 20.8 (12.0-20.0); Calcium, Blood 9.6 mg/dL (8.5-10.1); Creatinine, Blood 1.25 mg/dL (0.60-1.20); Potassium, Blood 4.6 mmol/L (3.5-5.5); Thyroid Stimulating Hormone 4.03 uIU/mL (0.360-4.800)
== END | disposition home or self-care (01) ==
LOC: LAB SHORT 16:00 → LAB 16:00
PROVIDERS: Nurse Practitioner Family
DX: Z13.29 Encounter for screening for other suspected endocrine disorder (principal); I10 Essential (primary) hypertension; E55.9 Vitamin D deficiency, unspecified; L85.3 Xerosis cutis; E66.2 Morbid (severe) obesity with alveolar hypoventilation; R53.83 Other fatigue; R00.1 Bradycardia, unspecified
CPT/HCPCS: 80048; 82306; 84443; 84550

== ENCOUNTER → 2022-08-09 | Outpatient (CLI) | payer MEDICARE, OTHER | LOC: LAB 17:33 → LAB SHORT 17:33 | DX: J02.0 Streptococcal pharyngitis (principal) | CPT/HCPCS: 87081 ==

== ENCOUNTER → 2023-02-10 | Outpatient (CLI) | payer MEDICARE, OTHER | LOC: LAB 17:44 → LAB SHORT 17:44 | DX: R06.09 Other forms of dyspnea (principal) | CPT/HCPCS: 83880 ==

== ENCOUNTER 2023-06-19 08:18 | Observation (INO) | payer MEDICARE, OTHER ==
[~2023-06-19] VITALS: Ht 190.5 cm; Wt 181.3 kg
[2023-06-20 07:36] VITALS: BP 103/73
== END 2023-06-20 11:58 | disposition home or self-care (01) ==
LOC: ER 08:18 → MEDS 08:19 → ENPENDDIS 06-20 11:05 → MEDS 06-20 11:58
PROVIDERS: ADMIT Internal Medicine
DX: I11.0 Hypertensive heart disease with heart failure (principal); I50.9 Heart failure, unspecified; I25.118 Atherosclerotic heart disease of native coronary artery with other forms of angina pectoris; E78.5 Hyperlipidemia, unspecified; I48.0 Paroxysmal atrial fibrillation; F32.9 Major depressive disorder, single episode, unspecified; G47.33 Obstructive sleep apnea (adult) (pediatric); E66.01 Morbid (severe) obesity due to excess calories; N40.1 Benign prostatic hyperplasia with lower urinary tract symptoms; Z79.01 Long term (current) use of anticoagulants